=== PATIENT | male | born 1985 | race Hispanic/Latino ===

== ENCOUNTER 2021-02-21 19:57 | Emergency (ER) | payer SELFPAY ==
--- OUTSIDE RECORDS SUMMARY | 2021-02-21 19:59 | XMS REPORT | Continuity of Care Document ---
:1985 Author Organization [facility] t Address [address] [place] [address] Care Team Providers Name Role Phone Ugo Adair DO Attending Clinician Problems This patient has no known problems. Allergies, Adverse Reactions, Alerts This patient has no known allergies or adverse reactions. Medications This patient has no known medications. Procedures This patient has no known procedures. Encounters Start End Encounter Admission Attending Care Care Encounter Source Date/Time Date/Time Type Type Clinicians Facility Department ID 2020-12-11 2020-12-11 Emergency NAKITA Adair [id number] 03:27:00 04:32:00 Brianna Ordonez [id number] [place] [id number] [place] [id number] Results This patient has no known results.
[2021-02-21] MEDS ORDERED: NA CHLORIDE 0.9% 2,000 ML ONE (20:39)
[2021-02-21] MEDS ORDERED: METOPROLOL TARTRATE 5 MG/5 ML INJ IV ONE ×2 (20:39→20:48)
[2021-02-21 20:42] LABS: Protime INR 1.06
[2021-02-21 20:43] LABS: Absolute Lymphocytes (CBC) 5.7 K/uL (0.7-4.9); Basophils % 0.6 % (0-1.3); Hematocrit 45.5 % (39.6-49.0); Lymphocytes % 35.6 % (15.3-44.8); MPV 8.1 fL (7.6-11.3); RBC Red Blood Cell Count 5.22 M/uL (4.33-5.43)
[2021-02-21 20:59] LABS: ALT/SGPT 22 U/L (12-78); AST/SGOT 17 U/L (15-37); Albumin 4.4 g/dL (3.4-5.0); Alkaline Phosphatase 76 U/L (45-117); BUN Blood Urea Nitrogen 11 mg/dL (7-18); Bicarbonate 22 mmol/L (21-32); Bilirubin Direct 0.1 mg/dL (0-0.2); Bilirubin Total 0.4 mg/dL (0.2-1.0); Glucose Level 132 mg/dL (74-106); Magnesium 2.2 mg/dL (1.8-2.4); Potassium 3.1 mmol/L (3.5-5.1); Protein, Total 8.4 g/dL (6.4-8.2); Sodium Level 136 mmol/L (136-145); Troponin (Emerg Dept Use Only) < 0.02 ng/mL (0.0-0.045)
[2021-02-21 21:05] LABS: NT PRO-BNP < 5 pg/mL (<125)
--- NOTE | 2021-02-21 21:13 | RAD REPORT ---
EXAM DESCRIPTION: RAD - Chest Single View - 02/21/2021 9:00 pm CLINICAL HISTORY: High HR Chest pain. COMPARISON: No comparisons FINDINGS: Portable technique limits examination quality. The lungs are grossly clear. The heart is normal in size. No displaced fractures. IMPRESSION: No acute intrathoracic process suspected.
[2021-02-21 21:20] LABS: Urine Blood 2+ (Negative); Urine Glucose Negative (Negative); Urine Protein Negative (Negative); Urine pH 6.5 (5.0-7.0)
[2021-02-21] MEDS ORDERED: POTASSIUM 25 MEQ EFFERV TAB ONE (21:54)
[2021-02-21 21:56] LABS: Barbiturates NEGATIVE (NEGATIVE); Benzodiazepines NEGATIVE (NEGATIVE); Cocaine NEGATIVE (NEGATIVE); METHAMPHETAM NEGATIVE (NEGATIVE); Methadone NEGATIVE (NEGATIVE); Opiates NEGATIVE (NEGATIVE); Phencyclidine NEGATIVE (NEGATIVE); THC Cannibis POSITIVE (NEGATIVE)
[2021-02-21] MEDS ORDERED: METOPROLOL XL 50 MG TAB PO ONE (22:55)
[2021-02-21 23:08] LABS: Blood Morphology Comment NOT SEEN (NOT SEEN); Platelet Estimate ADEQ
--- NOTE | 2021-02-21 23:23 | EDPHYS ---
Physician Documentation [facility] Name: Pato Gardiner Age: 35 yrs Sex: Male : 1985 Arrival Date: 02/21/2021 Time: 20:00 Bed 18 Private MD: ED Physician Carlos Alberto Lewis HPI: 02/21 21:06 This 35 yrs old Male presents to ER via Ambulatory with complaints of Anxiety, pm1 Irregular Pulse. 21:06 The patient presents with a history of heart racing. Context: The symptoms occur at pm1 rest, with anxiety. Onset: The symptoms/episode began/occurred today. Duration: The patient or guardian reports a single episode, that is still ongoing. Modifying factors: The symptoms are aggravated by stress, The symptoms are alleviated by nothing. Associated signs and symptoms: Pertinent positives: anxiety, Dizziness, Pertinent negatives: SOB. Severity of symptoms: in the emergency department the symptoms are unchanged. The patient has not recently seen a physician. Historical: - Allergies: 20:11 No Known Allergies; ca1 - Home Meds: 20:11 Lisinopril Oral [Active]; ca1 - PMHx: 20:11 Hypertension; ca1 - PSHx: 20:11 throat surgery; Appendectomy; ca1 - Immunization history:: Adult Immunizations not up to date. - Social history:: Smoking status: Patient denies any tobacco usage or history of. Patient/guardian denies using street drugs, but used to use street drugs. ROS: 21:06 Constitutional: Negative for fever, chills, and weight loss. pm1 21:06 Respiratory: Negative for shortness of breath, cough, wheezing, and pleuritic chest pain, Abdomen/GI: Negative for abdominal pain, nausea, vomiting, diarrhea, and constipation, Back: Negative for injury and pain, MS/Extremity: Negative for injury and deformity, Skin: Negative for injury, rash, and discoloration. 21:06 Cardiovascular: Positive for palpitations, Negative for chest pain, edema. 21:06 Neuro: Positive for dizziness, Negative for weakness. Exam: 21:06 Constitutional: This is a well developed, well nourished patient who is awake, alert, pm1 and in no acute distress. Head/Face: Normocephalic, atraumatic. 21:06 Abdomen/GI: Soft, non-tender, with normal bowel sounds. No distension or tympany. No guarding or rebound. No evidence of tenderness throughout. Back: No spinal tenderness. No costovertebral tenderness. Full range of motion. Skin: Warm, dry with normal turgor. Normal color with no rashes, no lesions, and no evidence of cellulitis. MS/ Extremity: Pulses equal, no cyanosis. Neurovascular intact. Full, normal range of motion. 21:06 Cardiovascular: Rate: tachycardic, actual rate is 147 bpm, Rhythm: regular, Pulses: no pulse deficits are appreciated, Heart sounds: normal, normal S1and S2, Edema: is not appreciated. 21:06 Respiratory: Exam negative for acute changes, respiratory distress, shortness of breath. 21:06 Neuro: Exam negative for acute changes, Orientation: is normal, Mentation: is normal, Motor: is normal, moves all fours. 21:06 Psych: Behavior/mood is anxious, Affect is animated, Oriented to person, place, time. Vital Signs: 20:07 BP 142 / 98; Pulse 156; Resp 20; Temp 97.5(TE); Pulse Ox 100% on R/A; Weight 101.15 kg ca1 (R); Height 5 ft. 11 in. (180.34 cm) (R); Pain 0/10; 21:08 BP 130 / 75; Pulse 116; Resp 18; Pulse Ox 100% on 2 lpm NC; wh 22:40 BP 126 / 81; Pulse 101; Resp 18; Pulse Ox 100% on R/A; wh 23:57 BP 118 / 70; Pulse 77; Resp 18; Pulse Ox 98% on R/A; wh 20:07 Body Mass Index 31.10 (101.15 kg, 180.34 cm) ca1 MDM: 20:20 Patient medically screened. pm1 23:21 Data reviewed: vital signs. Data interpreted: Pulse oximetry: on room air is 100 %. pm1 Interpretation: normal. 23:21 Counseling: I had a detailed discussion with the patient and/or guardian regarding: the pm1 historical points, exam findings, and any diagnostic results supporting the discharge/admit diagnosis, lab results, radiology results, the need for outpatient follow up, a display manager, a family practitioner, to return to the emergency department if symptoms worsen or persist or if there are any questions or concerns that arise at home. 23:46 ED course: Patient reports that he had low dose propranolol 20 mg in the past and would pm1 like a prescription. Patient under multiple stressors recently, car issues, losing his job after 10 years. 02/21 20:17 Order name: Basic Metabolic Panel 02/21 20:17 Order name: CBC with Diff 02/21 20:17 Order name: LFT's 02/21 20:17 Order name: Magnesium 02/21 20:17 Order name: NT PRO-BNP; Complete Time: 21:28 02/21 20:17 Order name: PT-INR; Complete Time: 21:28 02/21 20:17 Order name: Troponin (emerg Dept Use Only); Complete Time: 21:28 02/21 20:17 Order name: Urine Drug Screen; Complete Time: 23:46 02/21 20:17 Order name: Basic Metabolic Panel; Complete Time: 21:28 [facility] 02/21 20:17 Order name: CBC with Automated Diff; Complete Time: 23:46 [facility] 02/21 20:17 Order name: Liver (Hepatic) Function; Complete Time: 21:28 [facility] 02/21 20:18 Order name: Magnesium; Complete Time: 21:28 [facility] 02/21 20:36 Order name: Thyroid Stimulating Hormone; Complete Time: 21:28 [facility] 02/21 20:17 Order name: XRAY Chest (1 view); Complete Time: :28 02/21 20:17 Order name: EKG; Complete Time: 20:18 02/21 20:17 Order name: Cardiac monitoring; Complete Time: 20: 02/21 20:17 Order name: EKG - Nurse/Tech; Complete Time: 20: 02/21 20:17 Order name: IV Saline Lock; Complete Time: 20: 02/21 20:17 Order name: Labs collected and sent; Complete Time: : 02/21 20:17 Order name: O2 Per Protocol; Complete Time: : 02/21 20:17 Order name: O2 Sat Monitoring; Complete Time: : 02/21 21:12 Order name: Manual Differential; Complete Time: 23:46 [facility] 02/21 21:19 Order name: Urine Dipstick-Ancillary; Complete Time: 21:28 [facility] 02/21 22:46 Order name: EKG; Complete Time: 22:47 pm1 02/21 20:21 Order name: Urine Dipstick-Ancillary (obtain specimen); Complete Time: 21:20 pm1 02/21 22:46 Order name: EKG - Nurse/Tech; Complete Time: 22:57 pm1 Administered Medications: 08:30 Drug: Lopressor (metoprolol) 5 mg Route: IVP; Site: left antecubital; kg 21:36 Follow up: Response: No adverse reaction; Marked relief of symptoms 20:25 Drug: NS 0.9% 1000 ml Route: IV; Rate: 1000 ml; Site: left antecubital; wh 21:37 Follow up: Response: No adverse reaction; IV Status: Completed infusion 20:25 Drug: NS 0.9% 1000 ml Route: IV; Rate: 1000 ml; Site: left antecubital; wh 21:36 Follow up: Response: No adverse reaction; IV Status: Completed infusion 21:36 Drug: Potassium Effervescent Tablet 50 mEq Route: PO; 22:37 Follow up: Response: No adverse reaction 22:37 Drug: Metoprolol TARTRATE 50 mg Route: PO; 23:58 Follow up: Response: No adverse reaction; Marked relief of symptoms Disposition: 02/22 00:13 Co-signature as Attending Physician, Carlos Alberto Lewis MD. [place] Disposition: 02/21/21 23:22 Discharged to Home. Impression: Tachycardia, unspecified, Anxiety disorder, unspecified. - Condition is Stable. - Discharge Instructions: Generalized Anxiety Disorder, Sinus Tachycardia. - Prescriptions for Propranolol 20 mg Oral Tablet - take 1 tablet by ORAL route once daily As needed; 10 tablet. - Medication Reconciliation Form, Thank You Letter, Antibiotic Education, Prescription Opioid Use form. - Follow up: Emergency Department; When: As needed; Reason: Worsening of condition. Follow up: Private Physician; When: 2 - 3 days; Reason: Recheck today's complaints, Continuance of care, Re-evaluation by your physician. - Problem is new. - Symptoms have improved. Signatures: Dispatcher [employer] EDCarlos Alberto Pavon MD MD pkl Marinas, Patrick, DOBBY LOOM WEAVER DOBBY LOOM WEAVER pm1 Argenis Sheikh RN RN Karma Padilla RN RN [facility] Zakia Booker Corrections: (The following items were deleted from the chart) 05/17 20:36 20:21 THYROID STIMULAT HORMONE+C.LAB.BRZ ordered. EDMS EDMS 23:59 23:22 02/21/2021 23:22 Discharged to Home. Impression: Tachycardia, unspecified; wh Anxiety disorder, unspecified. Condition is Stable. Forms are Medication Reconciliation Form, Thank You Letter, Antibiotic Education, Prescription Opioid Use. Follow up: Emergency Department; When: As needed; Reason: Worsening of condition. Follow up: Private Physician; When: 2 - 3 days; Reason: Recheck today's complaints, Continuance of care, Re-evaluation by your physician. Problem is new. Symptoms have improved. pm1
--- NOTE | 2021-02-21 23:23 | ER ---
Nurse's Notes [facility] Name: Pato Gardiner Age: 35 yrs Sex: Male : 1985 Arrival Date: 02/21/2021 Time: 20:00 Bed 18 Private MD: Diagnosis: Tachycardia, unspecified;Anxiety disorder, unspecified Presentation: 02/21 20:07 Chief complaint: Patient states: I quit weed about 13 weeks ago, and I have anxiety all ca1 my life but don't take meds for it. I feel very anxious last few days, BP has been high and I feel like my heart is racing. Coronavirus screen: Client denies travel out of the [place] in the last 14 days. At this time, the client does not indicate any symptoms associated with coronavirus-19. Ebola Screen: Patient negative for fever greater than or equal to 101.5 degrees Fahrenheit, and additional compatible Ebola Virus Disease symptoms Patient denies exposure to infectious person. Patient denies travel to an Ebola-affected area in the 21 days before illness onset. No symptoms or risks identified at this time. Initial Sepsis Screen: Does the patient meet any 2 criteria? No. Patient's initial sepsis screen is negative. Does the patient have a suspected source of infection? No. Patient's initial sepsis screen is negative. Risk Assessment: Do you want to hurt yourself or someone else? Patient reports no desire to harm self or others. Onset of symptoms was February 21, 2021. 20:07 Method Of Arrival: Ambulatory ca1 20:07 Acuity: ANDREW 2 ca1 Historical: - Allergies: 20:11 No Known Allergies; ca1 - Home Meds: 20:11 Lisinopril Oral [Active]; ca1 - PMHx: 20:11 Hypertension; ca1 - PSHx: 20:11 throat surgery; Appendectomy; ca1 - Immunization history:: Adult Immunizations not up to date. - Social history:: Smoking status: Patient denies any tobacco usage or history of. Patient/guardian denies using street drugs, but used to use street drugs. Screenin:30 Abuse screen: Denies threats or abuse. Denies injuries from another. Nutritional wh screening: No deficits noted. Tuberculosis screening: No symptoms or risk factors identified. Fall Risk None identified. Assessment: 20:20 General: Appears in no apparent distress. Behavior is anxious. Pain: Denies pain. Neuro: Level of Consciousness is awake, alert, obeys commands, Oriented to person, place, time, situation. Cardiovascular: Reports palpitations, Heart tones S1 S2. Respiratory: Airway is patent Respiratory effort is even, unlabored, Respiratory pattern is regular, symmetrical, Breath sounds are clear bilaterally. GI: Abdomen is flat, non-distended. : No signs and/or symptoms were reported regarding the genitourinary system. EENT: No signs and/or symptoms were reported regarding the EENT system. Derm: Skin is intact, is healthy with good turgor, Skin is pink, warm \T\ dry. normal. Musculoskeletal: Circulation, motion, and sensation intact. 20:30 Pain: Pain does not radiate. Pain began suddenly. 21:08 Reassessment: Patient appears in no apparent distress at this time. No changes from previously documented assessment. Patient and/or family updated on plan of care and expected duration. Pain level reassessed. Patient is alert, oriented x 3, equal unlabored respirations, skin warm/dry/pink. 22:39 Reassessment: Patient appears in no apparent distress at this time. Patient and/or family updated on plan of care and expected duration. Pain level reassessed. Patient is alert, oriented x 3, equal unlabored respirations, skin warm/dry/pink. 23:57 Reassessment: Patient appears in no apparent distress at this time. Patient and/or family updated on plan of care and expected duration. Pain level reassessed. Patient is alert, oriented x 3, equal unlabored respirations, skin warm/dry/pink. Patient states feeling better. Patient states symptoms have improved. Vital Signs: 20:07 BP 142 / 98; Pulse 156; Resp 20; Temp 97.5(TE); Pulse Ox 100% on R/A; Weight 101.15 kg ca1 (R); Height 5 ft. 11 in. (180.34 cm) (R); Pain 0/10; 21:08 BP 130 / 75; Pulse 116; Resp 18; Pulse Ox 100% on 2 lpm NC; wh 22:40 BP 126 / 81; Pulse 101; Resp 18; Pulse Ox 100% on R/A; wh 23:57 BP 118 / 70; Pulse 77; Resp 18; Pulse Ox 98% on R/A; wh 20:07 Body Mass Index 31.10 (101.15 kg, 180.34 cm) ca1 ED Course: 20:00 Patient arrived in ED. cf2 20:10 Triage completed. ca1 20:11 Arm band placed on right wrist. ca1 20:12 José Araya NP is PHCP. pm1 20:12 Carlos Alberto Lewis MD is Attending Physician. pm1 20:16 Argenis Sheikh RN is Primary Nurse. wh 20:16 Inserted saline lock: 20 gauge in left antecubital area, using aseptic technique. kg 20:30 Patient has correct armband on for positive identification. Bed in low position. Call light in reach. Side rails up X 1. threat monitoring analyst on. Pulse ox on. NIBP on. 20:30 Oxygen administration via nasal cannula \T\ 2L/min. wh 21:01 XRAY Chest (1 view) In Process Unspecified. EDMS 23:58 No provider procedures requiring assistance completed. IV discontinued, intact, wh bleeding controlled, No redness/swelling at site. Administered Medications: 08:30 Drug: Lopressor (metoprolol) 5 mg Route: IVP; Site: left antecubital; kg 21:36 Follow up: Response: No adverse reaction; Marked relief of symptoms wh 20:25 Drug: NS 0.9% 1000 ml Route: IV; Rate: 1000 ml; Site: left antecubital; wh 21:37 Follow up: Response: No adverse reaction; IV Status: Completed infusion wh 20:25 Drug: NS 0.9% 1000 ml Route: IV; Rate: 1000 ml; Site: left antecubital; wh 21:36 Follow up: Response: No adverse reaction; IV Status: Completed infusion wh 21:36 Drug: Potassium Effervescent Tablet 50 mEq Route: PO; wh 22:37 Follow up: Response: No adverse reaction wh 22:37 Drug: Metoprolol TARTRATE 50 mg Route: PO; wh 23:58 Follow up: Response: No adverse reaction; Marked relief of symptoms Outcome: 23:22 Discharge ordered by . pm1 23:58 Discharged to home ambulatory. 23:58 Condition: stable 23:58 Discharge instructions given to patient, Instructed on discharge instructions, follow up and referral plans. medication usage, POC Demonstrated understanding of instructions, follow-up care, medications, POC Prescriptions given X 1. 23:59 Patient left the ED. wh Signatures: Dispatcher [employer] EDMS José Araya, [employer] MANAGER pm1 Argenis Sheikh RN RN Karma Padilla RN RN ca1 Jeremy Cerna cf2 Zakia Booker kg
[2021-02-22 00:28] VITALS: TEMP 97.5
[2021-02-22 00:33] VITALS: BP 118/70; O2SAT 98
--- NOTE | 2021-02-22 11:40 | EKG ---
Test Date: 2021-02-21 Test Time: 22:54:35 Assignment Desk Assistant: MEASUREMENT RESULTS: Intervals: Rate: 85 CT: 166 QRSD: 92 QT: 348 QTc: 414 [place]: P: 60 CT: 166 QRS: 4 T: 39 INTERPRETIVE STATEMENTS: Normal sinus rhythm Normal ECG No previous ECG available for comparison Electronically Signed On 02-22-21 11:39:23 CDT by John Clark
--- NOTE | 2021-02-22 11:40 | EKG ---
Test Date: 2021-02-21 Test Time: 20:14:57 Brand Marketing Specialist: RR MEASUREMENT RESULTS: Intervals: Rate: 159 [place]: 100 QRSD: 86 QT: 310 QTc: 504 [place]: P: 74 KS: 100 QRS: -54 T: 69 INTERPRETIVE STATEMENTS: Sinus tachycardia with short [place] Left anterior fascicular block Abnormal ECG No previous ECG available for comparison Electronically Signed On 02-22-21 11:39:25 CDT by John Clark
== END 2021-02-21 23:59 | disposition home or self-care (01) ==
LOC: ER 19:57
DX: F41.9 Anxiety disorder, unspecified (principal); R00.0 Tachycardia, unspecified; I10 Essential (primary) hypertension
CPT/HCPCS: 36415; 71045; 80048; 80076; 80307; 81003; 83735; 83880; 84443; 84484; 85025; 85610; 93005; 96361; 96374; 99285; J7030

== ENCOUNTER 2021-02-24 17:09 | Emergency (ER) | payer SELFPAY ==
--- OUTSIDE RECORDS SUMMARY | 2021-02-24 17:12 | XMS REPORT | Continuity of Care Document ---
:1985 Author Organization [facility] t Address [address] [id number] Care Team Providers Name Role Phone Ugo [...] 2020-12-11 2020-12-11 Emergency NAKITA Adair [id number] 03:27:00 04:32:00 Brianna Ordonez [id number] [place] [id number] [place] [id number] Results This patient has no known results.
[2021-02-24 20:38] LABS: Absolute Lymphocytes (CBC) 3.5 K/uL (0.7-4.9); Basophils % 0.5 % (0-1.3); Hematocrit 42.9 % (39.6-49.0); Lymphocytes % 28.1 % (15.3-44.8); RBC Red Blood Cell Count 4.95 M/uL (4.33-5.43)
[2021-02-24 20:39] LABS: Protime INR 1.14
[2021-02-24 20:58] LABS: ALT/SGPT 19 U/L (12-78); AST/SGOT 14 U/L (15-37); Albumin 4.3 g/dL (3.4-5.0); Alkaline Phosphatase 63 U/L (45-117); BUN Blood Urea Nitrogen 10 mg/dL (7-18); Bicarbonate 25 mmol/L (21-32); Bilirubin Direct 0.2 mg/dL (0-0.2); Bilirubin Total 0.8 mg/dL (0.2-1.0); Glucose Level 96 mg/dL (74-106); Magnesium 2.4 mg/dL (1.8-2.4); NT PRO-BNP 8 pg/mL (<125); Potassium 3.6 mmol/L (3.5-5.1); Protein, Total 8.2 g/dL (6.4-8.2); Sodium Level 139 mmol/L (136-145); Troponin (Emerg Dept Use Only) < 0.02 ng/mL (0.0-0.045)
--- NOTE | 2021-02-24 20:58 | RAD REPORT ---
EXAM DESCRIPTION: RAD - Chest Single View - 02/24/2021 8:53 pm CLINICAL HISTORY: CHEST PAIN COMPARISON: Portable February 21 TECHNIQUE: AP portable chest image was obtained 02/24/2021 8:53 pm . FINDINGS: Lungs are clear. Heart and vasculature are normal. No measurable pleural effusion and no p neumothorax. No acute bony abnormality seen. No acute aortic findings suspected. IMPRESSION: No acute cardiopulmonary process. No significant change from comparison study.
--- NOTE | 2021-02-24 21:27 | EDPHYS ---
Physician Documentation [facility] Name: Pato Gardiner Age: 35 yrs Sex: Male : 1985 Arrival Date: 02/24/2021 Time: 17:10 Bed 13 Private MD: ED Physician Boubacar Carmona HPI: 02/24 20:38 This 35 yrs old Male presents to ER via Ambulatory with complaints of High daphne Blood Pressure, Anxiety. 20:38 The patient has elevated blood pressure and discovered this at home. Onset: The daphne symptoms/episode began/occurred 2 day(s) ago. Modifying factors: The symptoms are aggravated by activity, The symptoms are alleviated by remaining still. Associated signs and symptoms: The patient has no apparent associated signs or symptoms. Severity of symptoms: At its worst the blood pressure was mild, in the emergency department the blood pressure is unchanged. The patient has not experienced similar symptoms in the past. Historical: - Allergies: 17:19 No Known Allergies; aa5 - PMHx: 17:19 Hypertension; aa5 - PSHx: 17:19 throat surgery; Appendectomy; aa5 - Immunization history:: Flu vaccine is not up to date. - Social history:: Smoking status: Patient denies any tobacco usage or history of. ROS: 20:39 Constitutional: Negative for fever, chills, and weight loss, Eyes: Negative for injury, daphne pain, redness, and discharge, ENT: Negative for injury, pain, and discharge, Neck: Negative for injury, pain, and swelling, Cardiovascular: Negative for chest pain, palpitations, and edema, Respiratory: Negative for shortness of breath, cough, wheezing, and pleuritic chest pain, Abdomen/GI: Negative for abdominal pain, nausea, vomiting, diarrhea, and constipation, Back: Negative for injury and pain, : Negative for injury, bleeding, discharge, and swelling, MS/Extremity: Negative for injury and deformity, Skin: Negative for injury, rash, and discoloration, Neuro: Negative for headache, weakness, numbness, tingling, and seizure, Psych: Negative for depression, anxiety, suicide ideation, homicidal ideation, and hallucinations, Allergy/Immunology: Negative for hives, rash, and allergies, Endocrine: Negative for neck swelling, polydipsia, polyuria, polyphagia, and marked weight changes, Hematologic/Lymphatic: Negative for swollen nodes, abnormal bleeding, and unusual bruising. Exam: 20:39 Constitutional: This is a well developed, well nourished patient who is awake, alert, daphne and in no acute distress. Head/Face: Normocephalic, atraumatic. Eyes: Pupils equal round and reactive to light, extra-ocular motions intact. Lids and lashes normal. Conjunctiva and sclera are non-icteric and not injected. Cornea within normal limits. Periorbital areas with no swelling, redness, or edema. ENT: Nares patent. No nasal discharge, no septal abnormalities noted. Tympanic membranes are normal and external auditory canals are clear. Oropharynx with no redness, swelling, or masses, exudates, or evidence of obstruction, uvula midline. Mucous membranes moist. Neck: Trachea midline, no thyromegaly or masses palpated, and no cervical lymphadenopathy. Supple, full range of motion without nuchal rigidity, or vertebral point tenderness. No Meningismus. Chest/axilla: Normal chest wall appearance and motion. Nontender with no deformity. No lesions are appreciated. Cardiovascular: Regular rate and rhythm with a normal S1 and S2. No gallops, murmurs, or rubs. Normal PMI, no JVD. No pulse deficits. Respiratory: Lungs have equal breath sounds bilaterally, clear to auscultation and percussion. No rales, rhonchi or wheezes noted. No increased work of breathing, no retractions or nasal flaring. Abdomen/GI: Soft, non-tender, with normal bowel sounds. No distension or tympany. No guarding or rebound. No evidence of tenderness throughout. Back: No spinal tenderness. No costovertebral tenderness. Full range of motion. Male : Normal genitalia with no discharge or lesions. Skin: Warm, dry with normal turgor. Normal color with no rashes, no lesions, and no evidence of cellulitis. MS/ Extremity: Pulses equal, no cyanosis. Neurovascular intact. Full, normal range of motion. Neuro: Awake and alert, GCS 15, oriented to person, place, time, and situation. Cranial nerves II-XII grossly intact. Motor strength 5/5 in all extremities. Sensory grossly intact. Cerebellar exam normal. Normal gait. Psych: Awake, alert, with orientation to person, place and time. Behavior, mood, and affect are within normal limits. 20:48 ECG was reviewed by the Attending Physician. [facility] Vital Signs: 17:15 BP 134 / 101; Pulse 93; Resp 17; Temp 98.5; Pulse Ox 100% ; Weight 101.6 kg; Height 5 aa5 ft. 11 in. (180.34 cm); Pain 0/10; 20:19 BP 123 / 86; Pulse 78; Resp 18; Pulse Ox 97% ; ea 21:25 BP 118 / 78; Pulse 77; Resp 18; Pulse Ox 98% on R/A; ea 17:15 Body Mass Index 31.24 (101.60 kg, 180.34 cm) aa5 MDM: 20:07 Patient medically screened. [facility] 20:40 Differential diagnosis: arrythmia, hypertensive crisis, Malignant HTN. Data reviewed: [facility] vital signs, nurses notes, lab test result(s), EKG, radiologic studies, plain films. Data interpreted: bus monitor: rate is 78 beats/min, rhythm is regular, Pulse oximetry: on room air is 78 %. Test interpretation: by ED physician or midlevel provider: ECG, plain radiologic studies. Counseling: I had a detailed discussion with the patient and/or guardian regarding: the historical points, exam findings, and any diagnostic results supporting the discharge/admit diagnosis, lab results, radiology results, the need for outpatient follow up, for definitive care, a tree climber. 02/24 19:58 Order name: Basic Metabolic Panel; Complete Time: : 02/24 19:58 Order name: CBC with Diff; Complete Time: : 02/24 19:58 Order name: LFT's; Complete Time: : 02/24 19:58 Order name: Magnesium; Complete Time: : 02/24 19:58 Order name: NT PRO-BNP; Complete Time: : 02/24 19:58 Order name: PT-INR; Complete Time: : 02/24 19:58 Order name: Troponin (emerg Dept Use Only); Complete Time: : 02/24 19:58 Order name: XRAY Chest (1 view); Complete Time: 21: 02/24 19:58 Order name: EKG; Complete Time: 19:59 02/24 19:58 Order name: Cardiac monitoring; Complete Time: 19:59 02/24 19:58 Order name: EKG - Nurse/Tech; Complete Time: 19:59 ea 02/24 19:58 Order name: IV Saline Lock; Complete Time: 20:19 ea 02/24 20:38 Order name: TSH daphne 02/24 19:58 Order name: Labs collected and sent; Complete Time: 20: ea 02/24 19:58 Order name: O2 Per Protocol; Complete Time: 20:00 02/24 19:58 Order name: O2 Sat Monitoring; Complete Time: 20:00 EC:48 Rate is 74 beats/min. Rhythm is regular. QRS [place] is Normal. DE interval is normal. QRS daphne interval is normal. QT interval is normal. No Q waves. T waves are Normal. No ST changes noted. Clinical impression: NSR w/ Non-specific ST/T Changes and No evidence of ischemia. Interpreted by me. Reviewed by me. Administered Medications: No medications were administered Disposition: 02/24/21 21:26 Discharged to Home. Impression: Palpitations, Essential (primary) hypertension. - Condition is Stable. - Discharge Instructions: Hypertension, Palpitations, Hypertension, Phyl-dl-Gtkl, How to Take Your Blood Pressure, Ibkv-so-Olcj, Aspirin and Your Heart, Palpitations, Eayy-zh-Aoma, Managing Your Hypertension. - Prescriptions for Toprol XL 25 mg Oral Tablet - take 1 tablet by ORAL route once daily; 20 tablet. - Medication Reconciliation Form, Thank You Letter, Antibiotic Education, Prescription Opioid Use form. - Follow up: Private Physician; When: As needed; Reason: Recheck today's complaints, Continuance of care, Re-evaluation by your physician. Follow up: John Clark; When: 2 - 3 days; Reason: Recheck today's complaints, Continuance of care, Re-evaluation by your physician. - Problem is new. - Symptoms have improved. Signatures: Dispatcher [employer] EDMS Boubacar Carmona MD MD cha Calderon, Audri, RN RN cris5 Suzanne Castaneda RN RN eh Corrections: (The following items were deleted from the chart) 21:38 21:26 02/24/2021 21:26 Discharged to Home. Impression: Palpitations; Essential ea (primary) hypertension. Condition is Stable. Discharge Instructions: Hypertension, Palpitations, Hypertension, Xjbu-ys-Yqpi, How to Take Your Blood Pressure, Offh-ed-Wfpz, Aspirin and Your Heart, Palpitations, Rpov-zv-Yjgd, Managing Your Hypertension. Prescriptions for Toprol XL 25 mg Oral Tablet - take 1 tablet by ORAL route once daily; 20 tablet. and Forms are Medication Reconciliation Form, Thank You Letter, Antibiotic Education, Prescription Opioid Use. Follow up: Private Physician; When: As needed; Reason: Recheck today's complaints, Continuance of care, Re-evaluation by your physician. Follow up: John Clark; When: 2 - 3 days; Reason: Recheck today's complaints, Continuance of care, Re-evaluation by your physician. Problem is new. Symptoms have improved. daphne
--- NOTE | 2021-02-24 21:27 | ER ---
Nurse's Notes [facility] Name: Pato Gardiner Age: 35 yrs Sex: Male : 1985 Arrival Date: 02/24/2021 Time: 17:10 Bed 13 Private MD: Diagnosis: Palpitations;Essential (primary) hypertension Presentation: 02/24 17:15 Chief complaint: Patient states: Anxiety and HTN continues since his visit here 3 days aa5 ago. Taking propanolol, lisinopril as prescribed, not helping. States some days he feels fine, but felt bad again today. Coronavirus screen: Client denies travel out of the [place] in the last 14 days. At this time, the client does not indicate any symptoms associated with coronavirus-19. Ebola Screen: Patient denies travel to an Ebola-affected area in the 21 days before illness onset. Initial Sepsis Screen: Does the patient meet any 2 criteria? HR > 90 bpm. No. Patient's initial sepsis screen is negative. Does the patient have a suspected source of infection? No. Patient's initial sepsis screen is negative. Risk Assessment: Do you want to hurt yourself or someone else? Patient reports no desire to harm self or others. Onset of symptoms was February 24, 2021. 17:15 Method Of Arrival: Ambulatory aa5 17:15 Acuity: ANDREW 3 aa5 Historical: - Allergies: 17:19 No Known Allergies; aa5 - PMHx: 17:19 Hypertension; aa5 - PSHx: 17:19 throat surgery; Appendectomy; aa5 - Immunization history:: Flu vaccine is not up to date. - Social history:: Smoking status: Patient denies any tobacco usage or history of. Screenin:37 Abuse screen: Denies threats or abuse. Nutritional screening: No deficits noted. ea Tuberculosis screening: No symptoms or risk factors identified. Fall Risk None identified. Assessment: 20:18 General: Appears uncomfortable, Behavior is appropriate for age. Pain: Complains of ea pain in chest. Neuro: Level of Consciousness is awake, alert, obeys commands, Oriented to person, place, time. Cardiovascular: Patient's skin is warm and dry. Respiratory: Airway is patent Respiratory effort is even, unlabored, Respiratory pattern is regular, symmetrical. Derm: Skin is pink, warm \T\ dry. 21:25 Reassessment: Patient and/or family updated on plan of care and expected duration. Pain ea level reassessed. Patient is alert, oriented x 3, equal unlabored respirations, skin warm/dry/pink. 21:35 Reassessment: Patient and/or family updated on plan of care and expected duration. Pain ea level reassessed. Patient is alert, oriented x 3, equal unlabored respirations, skin warm/dry/pink. Discharge instruction given to patient verbalized the understanding of instruction. Pt left ED ambulatory tolerating well. Patient denies pain at this time. Patient states feeling better. Vital Signs: 17:15 BP 134 / 101; Pulse 93; Resp 17; Temp 98.5; Pulse Ox 100% ; Weight 101.6 kg; Height 5 aa5 ft. 11 in. (180.34 cm); Pain 0/10; 20:19 BP 123 / 86; Pulse 78; Resp 18; Pulse Ox 97% ; ea 21:25 BP 118 / 78; Pulse 77; Resp 18; Pulse Ox 98% on R/A; ea 17:15 Body Mass Index 31.24 (101.60 kg, 180.34 cm) aa5 ED Course: 17:10 Patient arrived in ED. bp1 17:18 Triage completed. aa5 17:19 Arm band placed on. aa5 19:37 Suzanne Castaneda, JAIDEN is Primary Nurse. ea 19:38 Patient has correct armband on for positive identification. Bed in low position. Call ea light in reach. Side rails up X2. 20:07 Boubacar Carmona MD is Attending Physician. daphne 20:18 Inserted saline lock: 20 gauge in left antecubital area, using aseptic technique. Blood ea collected. 20:53 XRAY Chest (1 view) In Process Unspecified. EDMS 21:26 John Clark MD is Referral Physician. daphne 21:35 No provider procedures requiring assistance completed. IV discontinued, intact, ea bleeding controlled, No redness/swelling at site. Pressure dressing applied. Administered Medications: No medications were administered Outcome: 21:26 Discharge ordered by . daphne 21:35 Discharged to home ambulatory. ea 21:35 Condition: stable 21:35 Discharge instructions given to patient, Instructed on discharge instructions, follow up and referral plans. medication usage, Demonstrated understanding of instructions, follow-up care, medications, Prescriptions given X 1. 21:38 Patient left the ED. ea Signatures: Dispatcher [employer] EDBoubacar Denton MD MD cha Calderon, Audri, RN RN Suzanne Arredondo RN RN Shawna Hein
[2021-02-24 22:00] VITALS: TEMP 98.5
[2021-02-24 22:08] VITALS: BP 118/78; O2SAT 98
== END 2021-02-24 21:38 | disposition home or self-care (01) ==
LOC: ER 17:09
DX: I10 Essential (primary) hypertension (principal)
CPT/HCPCS: 36415; 71045; 80048; 80076; 83735; 83880; 84484; 85025; 85610; 93005; 99284

== ENCOUNTER 2021-02-25 10:56 | Emergency (ER) | payer SELFPAY ==
--- OUTSIDE RECORDS SUMMARY | 2021-02-25 11:00 | XMS REPORT | Continuity of Care Document ---
:1985 Author Organization [facility] t Address [address] [place] [address] Care Team Providers Name Role Phone Ugo [...] Clinicians Facility Department ID 2020-12-11 2020-12-11 Emergency [facility] [id number] 03:27:00 04:32:00 Brianna Ordonez [id number] [place] [id number] [place] [phone] Results This patient has no known results.
[2021-02-25] MEDS ORDERED: LORAZEPAM 1 MG TABLET ONE (12:47)
--- NOTE | 2021-02-25 14:37 | EDPHYS ---
Physician Documentation [facility] Name: Pato Gardiner Age: 35 yrs Sex: Male : 1985 Arrival Date: 02/25/2021 Time: 11:00 Bed 17 Private MD: ED Physician Ivan Childs HPI: 02/25 17:47 This 35 yrs old Male presents to ER via Ambulatory with complaints of Anxiety, kdr High Blood Pressure. 17:47 This 35 yrs old Male presents to ER via Ambulatory with complaints of Anxiety, kdr High Blood Pressure. 17:47 The patient presents to the emergency department with anxiety, over unknown kdr circumstances. Onset: The symptoms/episode began/occurred gradually, 2 week(s) ago. Associated signs and symptoms: Pertinent positives; anxiety, HTN. Severity of symptoms: At their worst the symptoms were moderate severe incapacitating just prior to arrival, today, in the emergency department the symptoms have improved mildly. The patient has experienced similar episodes in the past, a few times, but today's symptoms are worse, lasting longer. The patient has been recently seen by a physician: The patient has been recently seen at the [facility] Emergency Department, this week. The patient keeps having increased anxiety and then he takes his BP and notes that it is elevated. Then he gets more anxious. This has been ongoing for a few days and he has been seen in this ED twice for the same problem.. Historical: - Allergies: 11:16 No Known Allergies; hb - Home Meds: 11:16 Propranolol Oral [Active]; hb - PMHx: 11:16 Hypertension; hb - PSHx: 11:16 throat surgery; Appendectomy; hb - Immunization history:: Adult Immunizations up to date. - Social history:: Smoking status: Patient denies any tobacco usage or history of. ROS: 17:47 Constitutional: Negative for fever, chills, and weight loss, Eyes: Negative for injury, kdr pain, redness, and discharge, ENT: Negative for injury, pain, and discharge, Neck: Negative for injury, pain, and swelling, Respiratory: Negative for shortness of breath, cough, wheezing, and pleuritic chest pain, Abdomen/GI: Negative for abdominal pain, nausea, vomiting, diarrhea, and constipation, Back: Negative for injury and pain, : Negative for injury, bleeding, discharge, and swelling, MS/Extremity: Negative for injury and deformity, Skin: Negative for injury, rash, and discoloration, Neuro: Negative for headache, weakness, numbness, tingling, and seizure activity. Allergy/Immunology: Negative for hives, rash, and allergies, Endocrine: Negative for neck swelling, polydipsia, polyuria, polyphagia, and marked weight changes, Hematologic/Lymphatic: Negative for swollen nodes, abnormal bleeding, and unusual bruising. 17:47 Cardiovascular: Positive for palpitations, HTN. 17:47 Psych: Positive for anxiety, Negative for depression, drug dependence, alcohol dependence, auditory hallucinations, visual hallucinations, homicidal ideation, insomnia, suicide gesture, suicidal ideation. Exam: 17:47 Constitutional: This is a well developed, well nourished patient who is awake, alert, kdr and in mild distress. Pressured speech Head/Face: Normocephalic, atraumatic. Eyes: Pupils equal round and reactive to light, extra-ocular motions intact. Lids and lashes normal. Conjunctiva and sclera are non-icteric and not injected. Cornea within normal limits. Periorbital areas with no swelling, redness, or edema. Neck: Trachea midline, no thyromegaly or masses palpated, and no cervical lymphadenopathy. Supple, full range of motion without nuchal rigidity, or vertebral point tenderness. No Meningismus. Chest/axilla: Normal chest wall appearance and motion. Nontender with no deformity. No lesions are appreciated. Cardiovascular: Regular rate and rhythm with a normal S1 and S2. No gallops, murmurs, or rubs. Normal PMI, no JVD. No pulse deficits. Respiratory: Lungs have equal breath sounds bilaterally, clear to auscultation and percussion. No rales, rhonchi or wheezes noted. No increased work of breathing, no retractions or nasal flaring. Abdomen/GI: Soft, non-tender, with normal bowel sounds. No distension or tympany. No guarding or rebound. No evidence of tenderness throughout. Back: No spinal tenderness. No costovertebral tenderness. Full range of motion. Skin: Warm, dry with normal turgor. Normal color with no rashes, no lesions, and no evidence of cellulitis. MS/ Extremity: Pulses equal, no cyanosis. Neurovascular intact. Full, normal range of motion. Neuro: Awake and alert, GCS 15, oriented to person, place, time, and situation. Cranial nerves II-XII grossly intact. Motor strength 5/5 in all extremities. Sensory grossly intact. Cerebellar exam normal. Normal gait. 17:47 Psych: Affect is animated, Oriented to person, place, time, Patient has no thoughts/intents to harm self or others. Judgement / Insight is normal. Delusions/hallucinations are not present. Vital Signs: 11:13 BP 138 / 89; Pulse 132; Resp 20; Temp 98.3; Pulse Ox 100% on R/A; Pain 0/10; hb 12:31 BP 117 / 83; Pulse 76; Resp 16 S; Pulse Ox 99% on R/A; ca1 13:43 BP 113 / 77 LA (auto/reg); Pulse 73; Resp 18; Pulse Ox 100% on R/A; Pain 0/10; jp3 14:45 BP 114 / 79; Pulse 75; Resp 16 S; Pulse Ox 100% on R/A; ca1 MDM: 14:36 Patient medically screened. kdr 17:47 Data reviewed: vital signs, nurses notes. Counseling: I had a detailed discussion with kdr the patient and/or guardian regarding: the historical points, exam findings, and any diagnostic results supporting the discharge/admit diagnosis, the need for outpatient follow up. Administered Medications: 12:30 Drug: Ativan (LORazepam) 1 mg Route: PO; ca1 13:47 Follow up: Response: No adverse reaction; Anxiety decreased ca1 Disposition: 02/25/21 14:36 Discharged to Home. Impression: Anxiety disorder, unspecified. - Condition is Stable. - Discharge Instructions: Panic Attacks, Xvps-fm-Gewp, Generalized Anxiety Disorder. - Prescriptions for Ativan 1 mg Oral Tablet - take 1 tablet by ORAL route every 8 hours As needed; 10 tablet. - Medication Reconciliation Form, Thank You Letter form. - Follow up: Private Physician; When: 2 - 3 days; Reason: If symptoms return, Further diagnostic work-up, Recheck today's complaints, Continuance of care, Re-evaluation by your physician. - Problem is new. - Symptoms have improved. Signatures: Ivan Childs MD MD [facility] Cande Chavez RN RN Acob, JAIDEN Parada RN ca1 Corrections: (The following items were deleted from the chart) 14:47 14:36 02/25/2021 14:36 Discharged to Home. Impression: Anxiety disorder, unspecified. ca1 Condition is Stable. Forms are Medication Reconciliation Form, Thank You Letter, Antibiotic Education, Prescription Opioid Use. Follow up: Private Physician; When: 2 - 3 days; Reason: If symptoms return, Further diagnostic work-up, Recheck today's complaints, Continuance of care, Re-evaluation by your physician. Problem is new. Symptoms have improved. kdr
--- NOTE | 2021-02-25 14:37 | ER ---
Nurse's Notes [facility] Name: Pato Gardiner Age: 35 yrs Sex: Male : 1985 Arrival Date: 02/25/2021 Time: 11:00 Bed 17 Private MD: Diagnosis: Anxiety disorder, unspecified Presentation: 02/25 11:13 Chief complaint: Anxiety, SOB, numbness and tingling of face and hands, home BP hb 162/108. Recently seen in ED for same s/s, took propanolol at 0900. Coronavirus screen: At this time, the client does not indicate any symptoms associated with coronavirus-19. Ebola Screen: No symptoms or risks identified at this time. Initial Sepsis Screen: Does the patient meet any 2 criteria? No. Patient's initial sepsis screen is negative. Does the patient have a suspected source of infection? No. Patient's initial sepsis screen is negative. Risk Assessment: Do you want to hurt yourself or someone else? Patient reports no desire to harm self or others. Onset of symptoms was February 25, 2021. 11:13 Method Of Arrival: Ambulatory hb 11:13 Acuity: ANDREW 2 hb Historical: - Allergies: 11:16 No Known Allergies; hb - Home Meds: 11:16 Propranolol Oral [Active]; hb - PMHx: 11:16 Hypertension; hb - PSHx: 11:16 throat surgery; Appendectomy; hb - Immunization history:: Adult Immunizations up to date. - Social history:: Smoking status: Patient denies any tobacco usage or history of. Screenin:31 Abuse screen: Denies threats or abuse. Denies injuries from another. Nutritional ca1 screening: No deficits noted. Tuberculosis screening: No symptoms or risk factors identified. Fall Risk None identified. Assessment: 12:31 General: Appears in no apparent distress. comfortable, Behavior is calm, cooperative, ca1 appropriate for age. Pain: Denies pain. Neuro: Level of Consciousness is awake, alert, obeys commands, Oriented to person, place, time, situation. Cardiovascular: Heart tones S1 S2 present Capillary refill < 3 seconds Patient's skin is warm and dry. Rhythm is sinus rhythm. Respiratory: Airway is patent Respiratory effort is even, unlabored, Respiratory pattern is regular, symmetrical, Breath sounds are clear bilaterally. GI: Abdomen is flat, non-distended, Bowel sounds present X 4 quads. Abd is soft and non tender X 4 quads. : No signs and/or symptoms were reported regarding the genitourinary system. EENT: No signs and/or symptoms were reported regarding the EENT system. Derm: Skin is intact, is healthy with good turgor, Skin is pink, warm \T\ dry. Musculoskeletal: Circulation, motion, and sensation intact. Capillary refill < 3 seconds. 13:47 Reassessment: Patient appears in no apparent distress at this time. Patient and/or ca1 family updated on plan of care and expected duration. Pain level reassessed. Patient is alert, oriented x 3, equal unlabored respirations, skin warm/dry/pink. Patient states feeling better. Patient states symptoms have improved. 14:45 Reassessment: Patient appears in no apparent distress at this time. Patient is alert, ca1 oriented x 3, equal unlabored respirations, skin warm/dry/pink. Patient states feeling better. Vital Signs: 11:13 BP 138 / 89; Pulse 132; Resp 20; Temp 98.3; Pulse Ox 100% on R/A; Pain 0/10; hb 12:31 BP 117 / 83; Pulse 76; Resp 16 S; Pulse Ox 99% on R/A; ca1 13:43 BP 113 / 77 LA (auto/reg); Pulse 73; Resp 18; Pulse Ox 100% on R/A; Pain 0/10; jp3 14:45 BP 114 / 79; Pulse 75; Resp 16 S; Pulse Ox 100% on R/A; ca1 ED Course: 11:00 Patient arrived in ED. mr 11:15 Triage completed. hb 11:16 Arm band placed on. hb 11:53 Ivan Childs MD is Attending Physician. kdr 12:21 Karma Padilla, JAIDEN is Primary Nurse. ca1 12:31 Patient has correct armband on for positive identification. Bed in low position. Call ca1 light in reach. Side rails up X 1. Pulse ox on. NIBP on. Warm blanket given. 13:44 Notified ED physician of Notified primary nurse of vital signs. jp3 13:44 Patient maintains SpO2 saturation greater than 95% on room air. jp3 14:46 No provider procedures requiring assistance completed. Patient did not have IV access ca1 during this emergency room visit. Administered Medications: 12:30 Drug: Ativan (LORazepam) 1 mg Route: PO; ca1 13:47 Follow up: Response: No adverse reaction; Anxiety decreased ca1 Outcome: 14:36 Discharge ordered by . kdr 14:46 Discharged to home ambulatory. ca1 14:46 Condition: stable 14:46 Discharge instructions given to patient, Instructed on discharge instructions, follow up and referral plans. no drinking with medication, no driving heavy equipment, medication usage, Demonstrated understanding of instructions, follow-up care, medications, Prescriptions given X 1. 14:47 Patient left the ED. ca1 Signatures: Ivan Childs MD MD [facility] Ruby Szymanski Heather, RN RN Tone Kaur jp3 Karma Padilla RN RN ca1
[2021-02-25 14:55] VITALS: TEMP 98.3
[2021-02-25 14:59] VITALS: O2SAT 100
[2021-02-25 15:00] VITALS: BP 114/79
== END 2021-02-25 14:47 | disposition home or self-care (01) ==
LOC: ER 10:56
DX: F41.9 Anxiety disorder, unspecified (principal); I10 Essential (primary) hypertension
CPT/HCPCS: 99284

== ENCOUNTER 2021-02-28 20:31 | Emergency (ER) | payer SELFPAY ==
--- OUTSIDE RECORDS SUMMARY | 2021-02-28 20:33 | XMS REPORT | Continuity of Care Document ---
:1985 Author Organization [facility] t Address [address] [place] [address] Care Team Providers Name Role Phone Ugo [...] 2020-12-11 2020-12-11 Emergency NAKITA [place] [id number] 03:27:00 04:32:00 Brianna Ordonez [id number] [place] [id number] [place] [phone] [id number] Results This patient has no known results.
[2021-02-28 22:12] LABS: Absolute Lymphocytes (CBC) 3.2 K/uL (0.7-4.9); Basophils % 0.5 % (0-1.3); Hematocrit 44.5 % (39.6-49.0); Lymphocytes % 25.9 % (15.3-44.8); MPV 7.8 fL (7.6-11.3); RBC Red Blood Cell Count 5.16 M/uL (4.33-5.43)
[2021-02-28 22:13] LABS: Protime INR 1.1
[2021-02-28 22:27] LABS: ALT/SGPT 18 U/L (12-78); AST/SGOT 14 U/L (15-37); Albumin 4.3 g/dL (3.4-5.0); Alkaline Phosphatase 69 U/L (45-117); BUN Blood Urea Nitrogen 12 mg/dL (7-18); Bicarbonate 25 mmol/L (21-32); Bilirubin Direct 0.1 mg/dL (0-0.2); Bilirubin Total 0.6 mg/dL (0.2-1.0); Glucose Level 98 mg/dL (74-106); Magnesium 2.5 mg/dL (1.8-2.4); Potassium 3.9 mmol/L (3.5-5.1); Protein, Total 8.4 g/dL (6.4-8.2); Sodium Level 134 mmol/L (136-145); Troponin (Emerg Dept Use Only) < 0.02 ng/mL (0.0-0.045)
[2021-02-28 22:33] LABS: Barbiturates NEGATIVE (NEGATIVE); Benzodiazepines NEGATIVE (NEGATIVE); Cocaine NEGATIVE (NEGATIVE); METHAMPHETAM NEGATIVE (NEGATIVE); Methadone NEGATIVE (NEGATIVE); Opiates NEGATIVE (NEGATIVE); Phencyclidine NEGATIVE (NEGATIVE); THC Cannibis POSITIVE (NEGATIVE)
--- NOTE | 2021-02-28 22:55 | ER ---
Nurse's Notes [facility] Name: Pato Gardiner Age: 35 yrs Sex: Male : 1985 Arrival Date: 02/28/2021 Time: 20:33 Bed 24 Private MD: Diagnosis: Anxiety disorder, unspecified Presentation: 02/28 20:39 Chief complaint: Patient states: Started getting dizzy around 1500, BP was at 155/113. 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 Coronavirus screen: Client denies travel out of the [place] in the last 14 days. At this time, the client does not indicate any symptoms associated with coronavirus-19. Ebola Screen: Patient negative for fever greater than or equal to 101.5 degrees Fahrenheit, and additional compatible Ebola Virus Disease symptoms Patient denies exposure to infectious person. Patient denies travel to an Ebola-affected area in the 21 days before illness onset. No symptoms or risks identified at this time. Initial Sepsis Screen: Does the patient meet any 2 criteria? No. Patient's initial sepsis screen is negative. Does the patient have a suspected source of infection? No. Patient's initial sepsis screen is negative. Risk Assessment: Do you want to hurt yourself or someone else? Patient reports no desire to harm self or others. Onset of symptoms was February 28, 2021. 20:39 Method Of Arrival: Ambulatory ca1 20:39 Acuity: ANDREW 3 ca1 Triage Assessment: 21:45 General: Appears in no apparent distress. Behavior is anxious. Pain: Complains of pain zb in forehead Pain does not radiate. Pain currently is 0 out of 10 on a pain scale. Quality of pain is described as aching. Neuro: Level of Consciousness is awake, alert, obeys commands, Oriented to person, place, time, situation, Metrology Engineer are equal bilaterally Moves all extremities. Full function Gait is steady, Speech is normal, Pupils are PERRLA, Reports headache frontal area. Cardiovascular: Heart tones S1 S2 present Capillary refill < 3 seconds Patient's skin is warm and dry. Respiratory: Airway is patent Respiratory effort is even, unlabored, Respiratory pattern is regular, symmetrical. Derm: Skin is intact, is healthy with good turgor, Skin is dry, Skin is normal, Skin temperature is warm. Musculoskeletal: Range of motion: intact in all extremities. Historical: - Allergies: 20:42 No Known Allergies; ca1 - Home Meds: 20:42 Propranolol Oral [Active]; ca1 - PMHx: 20:42 Hypertension; Anxiety; ca1 - PSHx: 20:42 throat surgery; Appendectomy; ca1 - Immunization history:: Client reports having NOT received the Covid vaccine. Flu vaccine is up to date. - Social history:: Smoking status: Patient denies any tobacco usage or history of. Screenin:45 Abuse screen: Denies threats or abuse. Denies injuries from another. Nutritional zb screening: No deficits noted. Tuberculosis screening: No symptoms or risk factors identified. Fall Risk None identified. Assessment: :45 Reassessment: SEE triage assessment. zb :45 Reassessment: Patient appears in no apparent distress at this time. Patient and/or zb family updated on plan of care and expected duration. Pain level reassessed. Patient is alert/active/playful, equal unlabored respirations, skin warm/dry/pink. 23:23 Reassessment: Patient appears in no apparent distress at this time. Patient and/or zb family updated on plan of care and expected duration. Pain level reassessed. Patient is alert/active/playful, equal unlabored respirations, skin warm/dry/pink. denies pain at this time gait even and stable upon discharge. Vital Signs: 20:39 BP 126 / 85; Pulse 93; Resp 16 S; Temp 98.1(TE); Pulse Ox 100% on R/A; Weight 99.79 kg ca1 (R); Height 5 ft. 11 in. (180.34 cm) (R); Pain 0/10; 23:24 BP 116 / 81; Pulse 72; Resp 16; Pulse Ox 99% on R/A; zb 20:39 Body Mass Index 30.68 (99.79 kg, 180.34 cm) ca1 ED Course: 20:33 Patient arrived in ED. ag3 20:41 Triage completed. ca1 20:42 Arm band placed on right wrist. ca1 21:32 Boubacra Pulido PA is PHCP. cp 21:32 Zaki Lyon MD is Attending Physician. cp 21:45 Jeri Daniel RN is Primary Nurse. zb 21:45 Patient has correct armband on for positive identification. retirement plan counselor on. Pulse zb ox on. NIBP on. Door closed. Noise minimized. 22:00 Initial lab(s) drawn, by me, sent to lab. Inserted saline lock: 22 gauge in left zb antecubital area, using aseptic technique. Blood collected. 23:24 No provider procedures requiring assistance completed. IV discontinued, intact, zb bleeding controlled, No redness/swelling at site. Pressure dressing applied. Administered Medications: No medications were administered Outcome: 22:55 Discharge ordered by . salome 23:24 Discharged to home ambulatory. zb 23:24 Condition: stable 23:24 Discharge instructions given to patient, Instructed on discharge instructions, follow up and referral plans. medication usage, Demonstrated understanding of instructions, follow-up care, medications, Prescriptions given X 1. 23:25 Patient left the ED. zb Signatures: Boubacar Pulido PA PA cp Gomez, Alice ag3 Karma Padilla, RN RN Jeri Syed RN RN shira
--- NOTE | 2021-02-28 22:55 | EDPHYS ---
Physician Documentation [facility] Name: Pato Gardiner Age: 35 yrs Sex: Male : 1985 Arrival Date: 02/28/2021 Time: 20:33 Bed 24 Private MD: ED Physician Zaki Lyon HPI: 02/28 21:55 This 35 yrs old Male presents to ER via Ambulatory with complaints of High cp Blood Pressure. 21:55 The patient has elevated blood pressure and discovered this at home, with a home device.cp 21:55 Onset: The symptoms/episode began/occurred today. Associated signs and symptoms: cp Pertinent positives: chest pain, dizziness, blurred vision, Pertinent negatives: weakness. Severity of symptoms: At its worst the blood pressure was 155 mm Hg, in the emergency department the blood pressure is improved, moderately. 21:55 The patient has experienced similar episodes in the past, multiple times. 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 Symptoms improving. cp Historical: - Allergies: 20:42 No Known Allergies; ca1 - Home Meds: 20:42 Propranolol Oral [Active]; ca1 - PMHx: 20:42 Hypertension; Anxiety; ca1 - PSHx: 20:42 throat surgery; Appendectomy; ca1 - Immunization history:: Client reports having NOT received the Covid vaccine. Flu vaccine is up to date. - Social history:: Smoking status: Patient denies any tobacco usage or history of. ROS: 22:00 Constitutional: Negative for body aches, chills, fever, poor PO intake. cp 22:00 Eyes: Negative for injury, pain, redness, and discharge. cp 22:00 Cardiovascular: Positive for chest pain. cp 22:00 ENT: Negative for ear pain, sore throat, difficulty swallowing, difficulty handling cp secretions. 22:00 Respiratory: Negative for cough, shortness of breath, wheezing. 22:00 Abdomen/GI: Negative for abdominal pain, nausea, vomiting, and diarrhea. 22:00 Back: Negative for pain at rest, pain with movement. 22:00 Skin: Negative for rash. 22:00 Neuro: Positive for dizziness, Negative for altered mental status, numbness, weakness. 22:00 All other systems are negative. Exam: 22:05 Constitutional: The patient appears in no acute distress, alert, awake, cp non-diaphoretic, non-toxic, well developed, well nourished. 22:05 Head/Face: Normocephalic, atraumatic. cp 22:05 Eyes: Periorbital structures: appear normal, Conjunctiva: normal, no exudate, no injection, Lids and lashes: appear normal, bilaterally. 22:05 ENT: External ear(s): are unremarkable, Nose: is normal, Mouth: Lips: moist, Oral mucosa: moist, Posterior pharynx: is normal, airway is patent. 22:05 Neck: ROM/movement: is normal, is supple, without pain, no range of motions limitations. 22:05 Chest/axilla: Inspection: normal, Palpation: is normal, no crepitus, no tenderness. 22:05 Cardiovascular: Rate: normal, Rhythm: regular, Heart sounds: murmur, not appreciated. 22:05 Respiratory: the patient does not display signs of respiratory distress, Respirations: normal, no use of accessory muscles, no retractions, labored breathing, is not present, Breath sounds: are clear throughout, no decreased breath sounds, no stridor, no wheezing. 22:05 Abdomen/GI: Inspection: abdomen appears normal, Palpation: abdomen is soft and non-tender, in all quadrants. 22:15 ECG was reviewed by the Attending Physician. cp Vital Signs: 20:39 BP 126 / 85; Pulse 93; Resp 16 S; Temp 98.1(TE); Pulse Ox 100% on R/A; Weight 99.79 kg ca1 (R); Height 5 ft. 11 in. (180.34 cm) (R); Pain 0/10; 23:24 BP 116 / 81; Pulse 72; Resp 16; Pulse Ox 99% on R/A; zb 20:39 Body Mass Index 30.68 (99.79 kg, 180.34 cm) ca1 MDM: 21:46 Patient medically screened. cp 22:55 Data reviewed: vital signs, nurses notes, lab test result(s), EKG, and as a result, I cp will discharge patient. 22:55 Counseling: I had a detailed discussion with the patient and/or guardian regarding: the cp historical points, exam findings, and any diagnostic results supporting the discharge/admit diagnosis, lab results, the need for outpatient follow up, a family practitioner, to return to the emergency department if symptoms worsen or persist or if there are any questions or concerns that arise at home. 22:55 Test interpretation: by ED physician or midlevel provider: ECG. ED course: VSS. cp Discussed results of labs, EKG. Patient reports symptoms improved with Ativan. Will discharge to home for continued monitoring and recommend f/u with family physician. 02/28 21:48 Order name: Basic Metabolic Panel; Complete Time: 22:50 cp 02/28 22:50 Interpretation: Normal except: NA 134. cp 02/28 21:48 Order name: CBC with Diff; Complete Time: 22:50 cp 02/28 22:50 Interpretation: Normal except: WBC 12.20; RDW 12.0. cp 02/28 21:48 Order name: LFT's; Complete Time: 22:50 cp 02/28 21:48 Order name: Magnesium; Complete Time: 22:50 cp 02/28 21:48 Order name: PT-INR; Complete Time: 22:50 cp 02/28 21:48 Order name: Troponin (emerg Dept Use Only); Complete Time: 22:50 cp 02/28 22:51 Interpretation: Within normal limits: TROPED < 0.02. cp 02/28 21:48 Order name: EKG; Complete Time: 21:49 cp 02/28 21:48 Order name: Cardiac monitoring; Complete Time: 22:14 cp 02/28 21:48 Order name: EKG - Nurse/Tech; Complete Time: 22:14 cp 02/28 21:48 Order name: IV Saline Lock; Complete Time: 21:54 cp 02/28 21:48 Order name: Labs collected and sent; Complete Time: 21:54 cp 02/28 21:48 Order name: O2 Per Protocol; Complete Time: 21:54 cp 02/28 21:48 Order name: O2 Sat Monitoring; Complete Time: 21:54 cp 02/28 21:48 Order name: UDS; Complete Time: 22:50 cp EC:15 Rate is 73 beats/min. Rhythm is regular. AK interval is normal. QRS interval is normal. cp QT interval is normal. Interpreted by me. Reviewed by me. Administered Medications: No medications were administered Disposition: 03/01 05:05 Co-signature as Attending Physician, Zaki Lyon MD I agree with the assessment and tw4 plan of care. Disposition: 02/28/21 22:55 Discharged to Home. Impression: Anxiety disorder, unspecified. - Condition is Stable. - Discharge Instructions: Panic Attacks, Generalized Anxiety Disorder. - Prescriptions for Toprol XL 25 mg Oral Tablet Sustained Release 24 hr - take 1 tablet by ORAL route once daily; 30 tablet. - Medication Reconciliation Form, Thank You Letter, Antibiotic Education, Prescription Opioid Use form. - Follow up: Private Physician; When: 1 - 2 days; Reason: Recheck today's complaints. - Problem is an ongoing problem. - Symptoms have improved. Signatures: Dispatcher [employer] EDMS Boubacar Pulido PA PA cp Zaki Lyon MD MD tw4 Karma Padilla RN RN ca1 Brown, Zipporah, RN RN zb Corrections: (The following items were deleted from the chart) 02/28 23:25 22:55 02/28/2021 22:55 Discharged to Home. Impression: Anxiety disorder, unspecified. zb Condition is Stable. Forms are Medication Reconciliation Form, Thank You Letter, Antibiotic Education, Prescription Opioid Use. Follow up: Private Physician; When: 1 - 2 days; Reason: Recheck today's complaints. Problem is an ongoing problem. Symptoms have improved. cp 03/01 22:05 02/28 21:55 Severity of symptoms: At its worst the blood pressure was 156 mm Hg, in the emergency department the blood pressure is improved, moderately, cp 03/01 22:06 02/28 21:55 Patient reports taking Ativan 1 hour ago. [facility]
[2021-03-01 01:09] VITALS: TEMP 98.1
[2021-03-01 01:11] VITALS: BP 116/81; O2SAT 99
--- NOTE | 2021-03-01 11:32 | EKG ---
Test Date: 2021-02-28 Test Time: 22:09:31 Finance Analyst: MILNA MEASUREMENT RESULTS: Intervals: Rate: 73 NH: 156 QRSD: 90 QT: 372 QTc: 409 [place]: P: 47 NH: 156 QRS: -11 T: 56 INTERPRETIVE STATEMENTS: Normal sinus rhythm Normal ECG Compared to ECG 02/24/2021 19:54:59 No significant changes Electronically Signed On 03-01-21 11:31:00 CDT by John Clark
== END 2021-02-28 23:25 | disposition home or self-care (01) ==
LOC: ER 20:31
DX: F41.9 Anxiety disorder, unspecified (principal); I10 Essential (primary) hypertension
CPT/HCPCS: 36415; 80048; 80076; 80307; 83735; 84484; 85025; 85610; 93005; 99284

== ENCOUNTER 2022-08-05 14:48 | Emergency (ER) | payer BC, SELFPAY ==
--- OUTSIDE RECORDS SUMMARY | 2022-08-05 14:51 | XMS REPORT | Continuity of Care Document ---
:1985 Author Organization [facility] t Address [address] [place] [address] Care Team Providers Name Role Phone Balaton Jonathon RIOS Primary Care Physician [phone] Brianna Medel DO Attending Clinician BRIANNA MEDEL Attending Clinician Unavailable Problems This patient has no known problems. Allergies, Adverse Reactions, Alerts Allergy Allergy Status Severity Reaction(s) Onset Inactive Treating Comm ents Source Name Type Date Date Clinician NO KNOWN Drug Active Univers ALLERGIE Class ity of S [facility] Social History Social Habit Start Date Stop Date Quantity Comments Source Exposure to SARS-CoV-2 Not sure [facility] Sex [facility] Smoking Status Start Date Stop Date Source Unknown if ever smoked [facility] Medications Ordered Filled Start Stop Current Ordering Indication Dosage Frequency Signature Comments Components Source Medication Medication Date Date Medication? Clinician (SIG) Name Name Dose 2021-0 No Unknown 3-30 00:00: 00 Dose 2021-0 No Unknown 3-30 00:00: 00 Dose 2021-0 No Unknown 3-30 00:00: 00 Dose 2021-0 No Unknown 3-30 00:00: 00 Dose 2021-0 No Unknown 3-30 00:00: 00 Dose 2021-0 No Unknown 3-30 00:00: 00 Dose 2021-0 No Unknown 3-30 00:00: 00 Dose 2-0 No Unknown 3-30 00:00: 00 Dose 2021-0 No Unknown 3-30 00:00: 00 Dose 2021-0 No Unknown 3-30 00:00: 00 Dose 2022-0 No Unknown 3-30 00:00: 00 Dose 2022-0 No Unknown 3-30 00:00: 00 Dose 2022-0 No Unknown 3-30 00:00: 00 Dose 2022-0 No Unknown 3-30 00:00: 00 Dose 2022-0 No Unknown 3-30 00:00: 00 Dose 2022-0 No Unknown 3-30 00:00: 00 Dose 2022-0 No Unknown 3-30 00:00: 00 Dose 2022-0 No Unknown 3-30 00:00: 00 Dose 2022-0 No Unknown 3-30 00:00: 00 Dose 2022-0 No Unknown 3-30 00:00: 00 Dose 2022-0 No Unknown 3-30 00:00: 00 Dose 2022-0 No Unknown 3-30 00:00: 00 Dose 2022-0 No Unknown 3-30 00:00: 00 Dose 2022-0 No Unknown 3-30 00:00: 00 Dose 2022-0 No Unknown 3-30 00:00: 00 Dose 2022-0 No Unknown 3-30 00:00: 00 Dose 2022-0 No Unknown 3-30 00:00: 00 Dose 2022-0 No Unknown 3-30 00:00: 00 Dose 2022-0 No Unknown 3-30 00:00: 00 Dose 2022-0 No Unknown 3-30 00:00: 00 Dose 2022-0 No Unknown 3-30 00:00: 00 Dose 2022-0 No Unknown 3-30 00:00: 00 Dose 2022-0 No Unknown 3-30 00:00: 00 Dose 2022-0 No Unknown 3-30 00:00: 00 Dose 2022-0 No Unknown 3-30 00:00: 00 Dose 2022-0 No Unknown 3-30 00:00: 00 Dose 2022-0 No Unknown 3-30 00:00: 00 Dose 2022-0 No Unknown 3-30 00:00: 00 Dose 2022-0 No Unknown 3-30 00:00: 00 Dose 2022-0 No Unknown 3-30 00:00: 00 Dose 2022-0 No Unknown 3-30 00:00: 00 Dose 2022-0 No Unknown 3-30 00:00: 00 Dose 2022-0 No Unknown 3-30 00:00: 00 Dose 2022-0 No Unknown 3-30 00:00: 00 Dose 2021-0 No Unknown 3-30 00:00: 00 Dose 2021-0 No Unknown 3-30 00:00: 00 Dose 2021-0 No Unknown 3-30 00:00: 00 propranolol 2021-0 No 1mg 40 mg 1-04 tablet 00:00: 00 hydroxyzine 2021-0 No 12mg HCl 25 mg 1-04 tablet 00:00: 00 Dose 2020-0 No Unknown 6-08 00:00: 00 levofloxaci 2020-0 No 1mg n 500 mg 6- tablet 00:00: 00 sertraline 2020-0 No 1mg 50 mg - tablet 00:00: 00 Dose 2020-0 No Unknown 5 00:00: 00 Dose 2020-0 No Unknown 03-02 00:00: 00 glucagon 2020-0 2020- No 1mg 1 mg, Univers (GLUCAGEN 12-11 Intravenou ity of DIAGNOSTIC 10:45: 09:48 s, ONCE, 1 [place] KIT) 00 :00 dose, Sat Medical injection 1 12/11/20 at [facility] mg 0445, Routine ondansetron 2020- No 4mg 4 mg, Slow Univers (ZOFRAN 12-11 IV Push, ity of (PF)) 10:45: 09:46 ONCE, 1 [place] injection 4 00 :00 dose, Sat Med ical mg 12/11/20 at [facility] 0445, [place] NaCl 0.9% 2020- No 1000mL at 999 Uni vers (NS) bolus 12-11 mL/hr, ity of infusion 09:45: 10:28 1,000 mL, [place] as 1,000 mL 00 :00 IV Medical Infusion, Branch ONCE, 1 dose, 12/11/20 at 0345, WIL[place] No known No Univers medications ity of [facility] Vital Signs Vital Name Observation Time Observation Value Comments Source Systolic blood 2020-12-11 09:33:00 158 mm[Hg] Univer sity of pressure [facility] Diastolic blood 2020-12-11 09:33:00 89 mm[facility]Hg[facility] 2020-12-11 09:33:00 119 /min [facility] Body temperature 2020-12-11 09:33:00 37.28 Ann Univ ersity of [facility] Respiratory rate 2020-12-11 09:33:00 20 /min Univ ers[facility] Body weight 2020-12-11 09:33:00 111.131 kg Universi ty of [facility] Oxygen saturation in 2020-12-11 09:33:00 99 /min University of Arterial blood by [facility] Pulse oximetry [facility] Systolic blood 2020-12-11 09:33:00 158 mm[Hg] Univer sity of pressure [facility] Diastolic blood 2020-12-11 09:33:00 89 mm[Hg] Unive rsity of pressure [facility] Heart rate 2020-12-11 09:33:00 119 /min Universi ty of [facility] Body temperature 2020-12-11 09:33:00 37.28 Ann [facility] Respiratory rate 2020-12-11 09:33:00 20 /min [facility] ersity of [facility] Body weight 2020-12-11 09:33:00 111.131 kg Universi ty of [facility] Oxygen saturation in 2020-12-11 09:33:00 99 /min University of Arterial blood by [facility] Pulse oximetry [facility] BP Systolic 2022-07-04 09:24:00 122 mm[Hg] BP Diastolic 2022-07-04 09:24:00 83 mm[Hg] Weight Measured 2022-07-04 09:24:00 222.20 pounds Height Measured 2022-07-04 09:24:00 60.11 inches Body Temperature 2022-07-04 09:24:00 97.80 degrees Heart Rate 2022-07-04 09:24:00 78.00 /min Respiratory Rate 2022-07-04 09:24:00 18.00 /min BP Systolic 2022-01-04 08:53:00 123 mm[Hg] BP Diastolic 2022-01-04 08:53:00 85 mm[Hg] Weight Measured 2022-01-04 08:53:00 235.40 pounds Height Measured 2022-01-04 08:53:00 60.11 inches Body Temperature 2022-01-04 08:53:00 98.30 degrees Heart Rate 2022-01-04 08:53:00 73.00 /min Respiratory Rate 2022-01-04 08:53:00 16.00 /min BP Systolic 2021-10-11 08:21:00 BP Diastolic 2021-10-11 08:21:00 Weight Measured 2021-10-11 08:21:00 220.00 pounds Height Measured 2021-10-11 08:21:00 60.11 inches Body Temperature 2021-10-11 08:21:00 Heart Rate 2021-10-11 08:21:00 Respiratory Rate 2021-10-11 08:21:00 Weight Measured 2021-03-15 10:59:00 222.80 pounds Height Measured 2021-03-15 10:59:00 60.11 inches Body Temperature 2021-03-15 10:59:00 98.00 degrees Heart Rate 2021-03-15 10:59:00 68.00 /min Respiratory Rate 2021-03-15 10:59:00 18.00 /min BP Systolic 2021-03-15 10:59:00 109 mm[Hg] BP Diastolic 2021-03-15 10:59:00 67 mm[Hg] BP Systolic 2021-03-09 14:39:00 119 mm[Hg] BP Diastolic 2021-03-09 14:39:00 77 mm[Hg] Weight Measured 2021-03-09 14:39:00 221.40 pounds Height Measured 2021-03-09 14:39:00 60.11 inches Body Temperature 2021-03-09 14:39:00 Heart Rate 2021-03-09 14:39:00 79.00 /min Respiratory Rate 2021-03-09 14:39:00 BP Systolic 2021-03-02 15:16:00 134 mm[Hg] BP Diastolic 2021-03-02 15:16:00 91 mm[Hg] Weight Measured 2021-03-02 15:16:00 221.80 pounds Height Measured 2021-03-02 15:16:00 60.11 inches Body Temperature 2021-03-02 15:16:00 98.10 degrees Heart Rate 2021-03-02 15:16:00 110.00 /min Respiratory Rate 2021-03-02 15:16:00 17.00 /min Procedures Procedure Date / Time Performed Performing Clinician Sour e NOTICE OF PRIVACY 2020-12-11 09:27:37 [facility] CONSENT/REFUSAL FOR 2020-12-11 09:25:11 Doctor Unassigned, [facility] AND Name [facility] TREATMENT Plan of Care Planned Activity Planned Date Details Comments Source Goal Plan of Care Note [code = 38841-8] Goal Plan of Care Note [code = 00154-6] Goal Plan of Care Note [code = 11185-1] Goal Plan of Care Note [code = 61248-9] Goal Plan of Care Note [code = 67599-5] Goal Plan of Care Note [code = 51272-4] Goal Plan of Care Note [code = 00913-8] Encounters Start End Encounter Admission Attending Care Care Encounter Source Date/Time Date/Time Type Type Clinicians Facility Department ID 2022-07-04 2022-07-04 Outpatient [id number] 00:00:00 00:00:00 Visit [id number] 2020-12-11 2020-12-11 [id number] [facility] 03:27:00 04:32:00 Brianna Ordonez [id number] itEva [id number] [facility] [id number] [place] [id number] [facility] 2020-12-11 2020-12-11 [facility] [id number] 03:27:00 04:32:00 Brianna Ordonez [id number] [place] [id number] [place] [address] [id number] [facility] 2020-12-11 2020-12-11 Emergency [facility] [id number] 03:27:00 03:27:00 BRIANNA reynolds [facility] Results Test Description Test Time Test Comments Results Result Comments Source CBC W/AUTO DIFF WITH PLATELETS 2022-07-05 11:42:59 Test Item Value Reference Range Interpretation Comme nts WBC (test code = 1001) 7.8 K/UL 3.5-11.0 RBC (test code = 1002) 4.75 M/UL 4.50-6.10 HEMOGLOBIN (test code = 1003) 14.3 G/DL 13.5-17.0 HEMATOCRIT (test code = 1004) 41.2 % 40.0-51.0 MCV (test code = 1005) 86.7 fL 80.0-99.0 MCH (test code = 1006) 30.1 PG 25.0-33.0 MCHC (test code = 1007) 34.7 G/DL 31.0-36.0 RDW (test code = 1038) 11.7 % 11.5-15.0 NEUTROPHILS (test code = 49.0 % 1008) LYMPHOCYTES (test code = 35.9 % 1010) MONOCYTES (test code = 1011) 9.1 % EOSINOPHILS (test code = 5.5 % 1012) BASOPHILS (test code = 1013) 0.4 % IMMATURE GRANULOCYTES (test 0.1 % code = 1036) NUCLEATED RBCS (test code = 0.0 /100 WBC'S See_Comment [Automated message] The 1065) system which ge nerated this result transmit jaspreet reference range : 0.0. The reference range was not used to interpr et this result as yogi l/abnormal. PLATELET COUNT (test code = 249 K/UL [phone]) ABSOLUTE NEUTROPHILS (test 3.81 K/UL 1.50-7.50 code = 1066) ABSOLUTE LYMPHOCYTES (test 2.79 K/UL 1.00-4.00 code = 1067) ABSOLUTE MONOCYTES (test code 0.71 K/UL 0.20-1.00 = 1068) ABSOLUTE EOSINOPHILS (test 0.43 K/UL 0.00-0.50 code = 1040) ABSOLUTE BASOPHILS (test code 0.03 K/UL 0.00-0.20 = 1069) ABS IMMATURE GRANULOCYTES 0.01 K/UL 0.00-0.10 (test code = 1020) ABS NUCLEATED RBCS (test code 0.00 K/UL 0.00-0.11 = 54883) COMPREHENSIVE METABOLIC [id number] 04:39:34 Test Item Value Reference Range Interpretation Comments GLUCOSE (test code = 92 MG/DL 70-99 2216) BUN (test code = 9 MG/DL 6-20 2207) CREATININE (test 0.86 MG/DL 0.80-1.40 code = 2213) eGFR (2020 CKD-EPI) 114 >60 (test code = 74261) ML/MIN/1.73 CALC BUN/CREAT (test 10 RATIO 6-28 code = 2235) SODIUM (test code = 143 MEQ/L 823-156 0866) POTASSIUM (test code 4.1 MEQ/L 3.5-5.4 = 2227) CHLORIDE (test code 104 MEQ/L 95-107 = 2214) CARBON DIOXIDE (test 27 MEQ/L 19-31 code = 2205) CALCIUM (test code = 9.3 MG/DL 8.5-10.5 2208) PROTEIN, TOTAL (test 7.3 G/DL 6.1-8.3 code = 2228) ALBUMIN (test code = 4.6 G/DL 3.5-5.2 2200) CALC GLOBULIN (test 2.7 G/DL 1.9-3.7 code = 2239) CALC A/G RATIO (test 1.7 RATIO 1.0-2.6 code = 2233) BILIRUBIN, TOTAL 0.5 MG/DL See_Comment [Automated message] (test code = 2206) The syste m which generated this result transmit jaspreet reference range : <=1.2. The refe rence range was not u sed to interpret th is result as normal/abnormal . ALKALINE PHOSPHATASE 57 U/L 40-117 (test code = 2203) AST (test code = 21 U/L 9-50 2217) ALT (test code = 19 U/L 5-50 2218) LIPID [id number] 04:39:34 Test Item Value Reference Range Interpretation Comments CHOLESTEROL (test 160 MG/DL <200 code = 2210) TRIGLYCERIDES (test 86 MG/DL <150 code = 2232) HDL CHOLESTEROL (test 45 MG/DL >39 code = 222) CALC LDL CHOL (test 97 MG/DL <100 NOTE: C ALCULATED LDL code = 2237) IS BASED ON VIVIANA-CANALES METHOD WHICHINCLUDES ADJUSTABLE TRIGLYCERIDE:VL DL CHOLESTEROL RAT IO.THIS FACTOR VARIES B Y MEASURED TRIGLY CERIDE AND NON-HDLCHOL ESTEROL CONCENTRATIONS WITH INCREASED CALCU LATED LDL SEENIN HIGH ER TRIGLYCERIDE OR LOWER NON-HDL SPECIME NS. FOR MOREINFORMATION , SEE CLIENT ANNOUNCE MENT AT [email or web address] RISK RATIO LDL/HDL 2.16 RATIO <3.55 UNLESS O THERWISE (test code = 2238) INDICATED , ALL TESTING PERFORMED [facility], [facility]. [address] [place] [address] [facility] DIRECTOR: KRISTIE HUERTAS M.D. IA NUMBER [id number] CAP ACCREDITATION N O. [id number] CBC W/AUTO [id number] 00:00:00 Test Item Value Reference Range Interpretation Comments WBC (test code = 1001) 7.8 K/UL RBC (test code = 1002) 4.75 M/UL HEMOGLOBIN (test code = 1003) 14.3 G/DL HEMATOCRIT (test code = 1004) 41.2 % MCV (test code = 1005) 86.7 fL MCH (test code = 1006) 30.1 PG MCHC (test code = 1007) 34.7 G/DL RDW (test code = 1038) 11.7 % NEUTROPHILS (test code = 1008) 49.0 % LYMPHOCYTES (test code = 1010) 35.9 % MONOCYTES (test code = 1011) 9.1 % EOSINOPHILS (test code = 1012) 5.5 % BASOPHILS (test code = 1013) 0.4 % IMMATURE GRANULOCYTES (test 0.1 % code = 1036) NUCLEATED RBCS (test code = 0.0 /100WBC'S 1065) PLATELET COUNT (test code = 249 K/UL 1015) ABSOLUTE NEUTROPHILS (test code 3.81 K/UL = 1066) ABSOLUTE LYMPHOCYTES (test code 2.79 K/UL = 1067) ABSOLUTE MONOCYTES (test code = 0.71 K/UL 1068) ABSOLUTE EOSINOPHILS (test code 0.43 K/UL = 1040) ABSOLUTE BASOPHILS (test code = 0.03 K/UL 1069) ABS IMMATURE GRANULOCYTES (test 0.01 K/UL code = 1020) ABS NUCLEATED RBCS (test code = 0.00 K/UL 52553) CBC W/AUTO [id number] 00:00:00 Test Item Value Reference Range Interpretation Comments WBC (test code = 1001) 7.8 K/UL RBC (test code = 1002) 4.75 M/UL HEMOGLOBIN (test code = 1003) 14.3 G/DL HEMATOCRIT (test code = 1004) 41.2 % MCV (test code = 1005) 86.7 fL MCH (test code = 1006) 30.1 PG MCHC (test code = 1007) 34.7 G/DL RDW (test code = 1038) 11.7 % NEUTROPHILS (test code = 1008) 49.0 % LYMPHOCYTES (test code = 1010) 35.9 % MONOCYTES (test code = 1011) 9.1 % EOSINOPHILS (test code = 1012) 5.5 % BASOPHILS (test code = 1013) 0.4 % IMMATURE GRANULOCYTES (test 0.1 % code = 1036) NUCLEATED RBCS (test code = 0.0 /100WBC'S 1065) PLATELET COUNT (test code = 249 K/UL 1015) ABSOLUTE NEUTROPHILS (test code 3.81 K/UL = 1066) ABSOLUTE LYMPHOCYTES (test code 2.79 K/UL = 1067) ABSOLUTE MONOCYTES (test code = 0.71 K/UL 1068) ABSOLUTE EOSINOPHILS (test code 0.43 K/UL = 1040) ABSOLUTE BASOPHILS (test code = 0.03 K/UL 1069) ABS IMMATURE GRANULOCYTES (test 0.01 K/UL code = 1020) ABS NUCLEATED RBCS (test code = 0.00 K/UL 13169) CBC W/AUTO [id number] 00:00:00 Test Item Value Reference Range Interpretation Comments WBC (test code = 1001) 7.8 K/UL RBC (test code = 1002) 4.75 M/UL HEMOGLOBIN (test code = 1003) 14.3 G/DL HEMATOCRIT (test code = 1004) 41.2 % MCV (test code = 1005) 86.7 fL MCH (test code = 1006) 30.1 PG MCHC (test code = 1007) 34.7 G/DL RDW (test code = 1038) 11.7 % NEUTROPHILS (test code = 1008) 49.0 % LYMPHOCYTES (test code = 1010) 35.9 % MONOCYTES (test code = 1011) 9.1 % EOSINOPHILS (test code = 1012) 5.5 % BASOPHILS (test code = 1013) 0.4 % IMMATURE GRANULOCYTES (test 0.1 % code = 1036) NUCLEATED RBCS (test code = 0.0 /100WBC'S 1065) PLATELET COUNT (test code = 249 K/UL 1015) ABSOLUTE NEUTROPHILS (test code 3.81 K/UL = 1066) ABSOLUTE LYMPHOCYTES (test code 2.79 K/UL = 1067) ABSOLUTE MONOCYTES (test code = 0.71 K/UL 1068) ABSOLUTE EOSINOPHILS (test code 0.43 K/UL = 1040) ABSOLUTE BASOPHILS (test code = 0.03 K/UL 1069) ABS IMMATURE GRANULOCYTES (test 0.01 K/UL code = 1020) ABS NUCLEATED RBCS (test code = 0.00 K/UL 25674) COMPREHENSIVE METABOLIC [id number] 00:00:00 Test Item Value Reference Range Interpretation Comments GLUCOSE (test code = 2217) 92 MG/DL BUN (test code = 2208) 9 MG/DL CREATININE (test code = 2214) 0.86 MG/DL eGFR (2020 CKD-EPI) (test 114 ML/MIN/1.73 code = 40179) CALC BUN/CREAT (test code = 10 RATIO 2235) SODIUM (test code = 2231) 143 MEQ/L POTASSIUM (test code = 2228) 4.1 MEQ/L CHLORIDE (test code = 2215) 104 MEQ/L CARBON DIOXIDE (test code = 27 MEQ/L 220) CALCIUM (test code = 2209) 9.3 MG/DL PROTEIN, TOTAL (test code = 7.3 G/DL 222) ALBUMIN (test code = 2201) 4.6 G/DL CALC GLOBULIN (test code = 2.7 G/DL 2240) CALC A/G RATIO (test code = 1.7 RATIO 2234) BILIRUBIN, TOTAL (test code = 0.5 MG/DL 220) ALKALINE PHOSPHATASE (test 57 U/L code = 2204) AST (test code = 2218) 21 U/L ALT (test code = 2219) 19 U/L COMPREHENSIVE METABOLIC [id number] 00:00:00 Test Item Value Reference Range Interpretation Comments GLUCOSE (test code = 2217) 92 MG/DL BUN (test code = 2208) 9 MG/DL CREATININE (test code = 2214) 0.86 MG/DL eGFR (2020 CKD-EPI) (test 114 ML/MIN/1.73 code = 51146) CALC BUN/CREAT (test code = 10 RATIO 2235) SODIUM (test code = 2231) 143 MEQ/L POTASSIUM (test code = 2228) 4.1 MEQ/L CHLORIDE (test code = 2215) 104 MEQ/L CARBON DIOXIDE (test code = 27 MEQ/L 2205) CALCIUM (test code = 2209) 9.3 MG/DL PROTEIN, TOTAL (test code = 7.3 G/DL 2228) ALBUMIN (test code = 2201) 4.6 G/DL CALC GLOBULIN (test code = 2.7 G/DL 2239) CALC A/G RATIO (test code = 1.7 RATIO 2234) BILIRUBIN, TOTAL (test code = 0.5 MG/DL 2206) ALKALINE PHOSPHATASE (test 57 U/L code = 2204) AST (test code = 2218) 21 U/L ALT (test code = 2219) 19 U/L LIPID [id number] 00:00:00 Test Item Value Reference Range Interpretation Comments CHOLESTEROL (test code = 2210) 160 MG/DL TRIGLYCERIDES (test code = 2232) 86 MG/DL HDL CHOLESTEROL (test code = 2220) 45 MG/DL CALC LDL CHOL (test code = 2237) 97 MG/DL RISK RATIO LDL/HDL (test code = 2.16 RATIO 2238) LIPID [id number] 00:00:00 Test Item Value Reference Range Interpretation Comments CHOLESTEROL (test code = 2210) 160 MG/DL TRIGLYCERIDES (test code = 2232) 86 MG/DL HDL CHOLESTEROL (test code = 2220) 45 MG/DL CALC LDL CHOL (test code = 2237) 97 MG/DL RISK RATIO LDL/HDL (test code = 2.16 RATIO 2238) CULTURE, [id number] 00:00:00 Test Item Value Reference Range Interpretation Comments CULTURE, URINE (test SPECIMEN NUMBER: code = 94965) [id number] CULTURE, [id number] 00:00:00 Test Item Value Reference Range Interpretation Comments CULTURE, URINE (test SPECIMEN NUMBER: code = 05777) [id number] CHLAMYDIA, AMPLIFIED, [id number] 00:00:00 Test Item Value Reference Range Interpretation Comments CHLAMYDIA, NAAT (test code = 35621) NEGATIVE CHLAMYDIA, AMPLIFIED, [id number] 00:00:00 Test Item Value Reference Range Interpretation Comments CHLAMYDIA, NAAT (test code = 29749) NEGATIVE GC, AMPLIFIED, [id number] 00:00:00 Test Item Value Reference Range Interpretation Comments GONORRHEA, NAAT (test code = 80610) NEGATIVE GC, AMPLIFIED, [id number] 00:00:00 Test Item Value Reference Range Interpretation Comments GONORRHEA, NAAT (test code = 20618) NEGATIVE COMPREHENSIVE METABOLIC [id number] 00:00:00 Test Item Value Reference Range Interpretation Comments GLUCOSE (test code = 2217) 98 MG/DL BUN (test code = 2208) 9 MG/DL CREATININE (test code = 2214) 0.94 MG/DL eGFR AMER. (test code 121 ML/MIN/1.73 = 71857) eGFR NON- AMER. (test 105 ML/MIN/1.73 code = 47910) CALC BUN/CREAT (test code = 10 RATIO 2235) SODIUM (test code = 2231) 138 MEQ/L POTASSIUM (test code = 2228) 4.3 MEQ/L CHLORIDE (test code = 2215) 99 MEQ/L CARBON DIOXIDE (test code = 24 MEQ/L 6) CALCIUM (test code = 2209) 10.0 MG/DL PROTEIN, TOTAL (test code = 8.2 G/DL 2228) ALBUMIN (test code = 2201) 4.9 G/DL CALC GLOBULIN (test code = 3.3 G/DL 2240) CALC A/G RATIO (test code = 1.5 RATIO 2234) BILIRUBIN, TOTAL (test code = 0.6 MG/DL 2206) ALKALINE PHOSPHATASE (test 70 U/L code = 2204) AST (test code = 2218) 18 U/L ALT (test code = 2219) 11 U/L COMPREHENSIVE METABOLIC [id number] 00:00:00 Test Item Value Reference Range Interpretation Comments GLUCOSE (test code = 2217) 98 MG/DL BUN (test code = 2208) 9 MG/DL CREATININE (test code = 2214) 0.94 MG/DL eGFR AMER. (test code 121 ML/MIN/1.73 = 52729) eGFR NON- AMER. (test 105 ML/MIN/1.73 code = 60671) CALC BUN/CREAT (test code = 10 RATIO 2235) SODIUM (test code = 2231) 138 MEQ/L POTASSIUM (test code = 2228) 4.3 MEQ/L CHLORIDE (test code = 2215) 99 MEQ/L CARBON DIOXIDE (test code = 24 MEQ/L 2205) CALCIUM (test code = 2209) 10.0 MG/DL PROTEIN, TOTAL (test code = 8.2 G/DL 2228) ALBUMIN (test code = 2201) 4.9 G/DL CALC GLOBULIN (test code = 3.3 G/DL 2239) CALC A/G RATIO (test code = 1.5 RATIO 2234) BILIRUBIN, TOTAL (test code = 0.6 MG/DL 2206) ALKALINE PHOSPHATASE (test 70 U/L code = 2204) AST (test code = 2218) 18 U/L ALT (test code = 2219) 11 U/L LIPID [id number] 00:00:00 Test Item Value Reference Range Interpretation Comments CHOLESTEROL (test code = 2210) 135 MG/DL TRIGLYCERIDES (test code = 2232) 72 MG/DL HDL CHOLESTEROL (test code = 2220) 41 MG/DL CALC LDL CHOL (test code = 2237) 79 MG/DL RISK RATIO LDL/HDL (test code = 1.93 RATIO 2238) LIPID [id number] 00:00:00 Test Item Value Reference Range Interpretation Comments CHOLESTEROL (test code = 2210) 135 MG/DL TRIGLYCERIDES (test code = 2232) 72 MG/DL HDL CHOLESTEROL (test code = 2220) 41 MG/DL CALC LDL CHOL (test code = 2237) 79 MG/DL RISK RATIO LDL/HDL (test code = 1.93 RATIO 2238) HEMOGLOBIN [id number] 00:00:00 Test Item Value Reference Range Interpretation Comments HEMOGLOBIN A1c (test code = 46718) 5.4 % HEMOGLOBIN [id number] 00:00:00 Test Item Value Reference Range Interpretation Comments HEMOGLOBIN A1c (test code = 19656) 5.4 % HEMOGLOBIN [id number] 00:00:00 Test Item Value Reference Range Interpretation Comments HEMOGLOBIN A1c (test code = 89773) 5.4 %
[2022-08-05] MEDS ORDERED: NA CHLORIDE 0.9% 1,000 ML ONE (15:20)
[2022-08-05] MEDS ORDERED: FAMOTIDINE 20 MG/2 ML VIAL IV ONE (15:20)
[2022-08-05] MEDS ORDERED: GLUCAGON 1 MG/VIAL ONE (15:20)
[2022-08-05] MEDS ORDERED: ONDANSETRON 4 MG/2 ML VIAL ONE (15:20)
[2022-08-05 15:43] LABS: Absolute Lymphocytes (CBC) 1.8 K/uL (0.7-4.9); Lymphocytes % 23.7 % (15.3-44.8); MCV 87.9 fL (80-100); MPV 7.1 fL (7.6-11.3)
[2022-08-05 15:57] LABS: Albumin 3.8 g/dL (3.4-5.0); Bilirubin Total 0.7 mg/dL (0.2-1.0); Potassium 3.8 mmol/L (3.5-5.1); Protein, Total 7.5 g/dL (6.4-8.2)
--- NOTE | 2022-08-05 16:34 | RAD REPORT ---
EXAM DESCRIPTION: RAD - Chest Single View - 08/05/2022 3:58 pm CLINICAL HISTORY: dysphagia COMPARISON: Portable 02/24/2021 TECHNIQUE: AP portable chest image was obtained 08/05/2022 3:58 pm . FINDINGS: Lungs are clear. Heart and vasculature are normal. No measurable pleural effusion and no p neumothorax. No acute bony abnormality seen. No acute aortic findings suspected. IMPRESSION: No acute cardiopulmonary process. No significant change from comparison study.
--- NOTE | 2022-08-05 16:45 | ER ---
Nurse's Notes [facility] Name: Pato Gardiner Age: 37 yrs Sex: Male : 1985 Arrival Date: 08/05/2022 Time: 14:49 Bed 14 Private MD: Diagnosis: Foreign body of alimentary tract, part unspecified, initial encounter Presentation: 08/05 14:54 Chief complaint: Blueberry muffin stuck in throat. Not tolerating liquids. Coronavirus hb screen: At this time, the client does not indicate any symptoms associated with coronavirus-19. Ebola Screen: No symptoms or risks identified at this time. Risk Assessment: Do you want to hurt yourself or someone else? Patient reports no desire to harm self or others. Onset of symptoms was August 05, 2022. 14:54 Method Of Arrival: Ambulatory hb 14:54 Acuity: ANDREW 3 hb 18:04 Initial Sepsis Screen: Does the patient meet any 2 criteria? No. Patient's initial ko1 sepsis screen is negative. Does the patient have a suspected source of infection? No. Patient's initial sepsis screen is negative. Historical: - Allergies: 14:55 No Known Allergies; hb - PMHx: 15:31 Anxiety; Hypertension; jl7 - Immunization history:: Adult Immunizations unknown. - Social history:: Smoking status: Patient denies any tobacco usage or history of. Screenin:30 Abuse screen: Denies threats or abuse. Denies injuries from another. Nutritional ko1 screening: No deficits noted. Tuberculosis screening: No symptoms or risk factors identified. Fall Risk None identified. Assessment: 15:30 General: Appears in no apparent distress. comfortable, Behavior is calm, cooperative, ko1 appropriate for age. Pain: Denies pain. Neuro: No deficits noted. Cardiovascular: No deficits noted. Respiratory: No deficits noted. GI: No deficits noted. : No deficits noted. EENT: Reports food stuck in throat. 15:30 Derm: No deficits noted. Musculoskeletal: No deficits noted. ko1 Vital Signs: 14:54 BP 136 / 93; Pulse 76; Resp 16; Temp 98.2; Pulse Ox 96% on R/A; Weight 100.7 kg; Height hb 5 ft. 11 in. (180.34 cm); Pain 3/10; 15:30 BP 117 / 78; Pulse 72; ko1 17:28 BP 118 / 72; Pulse 70; Pulse Ox 98% ; ko1 14:54 Body Mass Index 30.96 (100.70 kg, 180.34 cm) hb ED Course: 14:49 Patient arrived in ED. am2 14:51 Boubacar Pulido PA is PHCP. cp 14:51 Ivan Childs MD is Attending Physician. cp 14:53 Sandhya Geiger, JAIDEN is Primary Nurse. ko1 14:55 Triage completed. hb 15:23 CBC with Diff Sent. ko1 15:23 CMP Sent. ko1 15:23 Lipase Sent. ko1 15:30 Patient has correct armband on for positive identification. Placed in gown. Bed in low ko1 position. Call light in reach. Side rails up X 1. Client placed on continuous cardiac and pulse oximetry monitoring. NIBP monitoring applied. 15:31 Inserted saline lock: 22 gauge in right antecubital area, using aseptic technique. kr3 Blood collected. 16:00 XRAY Chest (1 view) In Process Unspecified. EDMS 16:54 initiated a transfer with Quita Nobles from the [facility]. eb 16:56 SARS RAPID Sent. zm 17:20 connected the hospitalist contractor field hauling for [facility] with Boubacar Ryan for patient transfer consultation. 17:28 No provider procedures requiring assistance completed. ko1 17:33 administrative approval given by Quita Nobles/ patient has been accepted to [facility] [id number]/ Dr. Gina Trinidad has accepted the patient in transfer/ report to be called to [phone]. 17:51 Ptt, Activated Sent. ko1 17:51 PT-INR Sent. ko1 18:03 Patient transferred, IV remains in place. ko1 18:03 Report given to Feli Jimenez RN at [facility]. ko1 18:04 Arm band placed on right wrist. ko1 Administered Medications: 15:23 Drug: NS 0.9% 1000 ml Route: IV; Rate: 1 bolus; Site: right antecubital; jl7 15:23 Drug: Pepcid (famotidine) 20 mg Route: IVP; Site: right antecubital; jl7 15:24 Drug: Zofran (Ondansetron) 4 mg Route: IVP; Site: right antecubital; jl7 15:26 Drug: GlucaGen (glucagon) 1 mg Route: IVP; Site: right antecubital; jl7 Medication: 17:28 VIS not applicable for this client. ko1 Outcome: 16:45 ER care complete, transfer ordered by MD. mcmahon 18:03 Transferred by ground EMS [facility]. to [facility], Transfer ko1 form completed. X-rays sent w/ patient. 18:03 Condition: stable 18:03 Discharge instructions given to patient, Instructed on the need for transfer, Demonstrated understanding of instructions. 18:28 Patient left the ED. ko1 Signatures: Dispatcher [employer] EDMS Boubacar Pulido PA PA cp Cande Chavez, RN RN Aashish Smith RN RN jl7 Olya Dowell Elizabeth eb Martinez, Zaina zm Reid, Kelley, RN RN kr3 Sandhya Geiger RN RN ko1 Corrections: (The following items were deleted from the chart) 18:27 18:03 Transferred by private ambulance to [facility], Transfer form ko1 completed. X-rays sent w/ patient. ko1
--- NOTE | 2022-08-05 16:45 | EDPHYS ---
Physician Documentation [facility] Name: Pato Gardiner Age: 37 yrs Sex: Male : 1985 Arrival Date: 08/05/2022 Time: 14:49 Bed 14 Private MD: ED Physician Ivan Childs HPI: 08/05 15:05 This 37 yrs old Male presents to ER via Ambulatory with complaints of Foreign cp Body In Throat - food stuck. 15:05 The patient presents with a foreign body sensation in the throat. Onset: The cp symptoms/episode began/occurred today. 15:05 Severity of symptoms: in the emergency department the symptoms are unchanged. cp Associated signs and symptoms: Pertinent positives: nausea, vomiting. Patient reports feeling of food being stuck after eating muffin this afternoon. Patient reports history of esophageal dilation procedure in the past. Historical: - Allergies: 14:55 No Known Allergies; hb - PMHx: 15:31 Anxiety; Hypertension; jl7 - Immunization history:: Adult Immunizations unknown. - Social history:: Smoking status: Patient denies any tobacco usage or history of. ROS: 15:10 Constitutional: Negative for body aches, chills, fever. cp 15:10 Eyes: Negative for injury, pain, redness, and discharge. cp 15:10 ENT: Positive for difficulty swallowing, foreign body sensation, Negative for sore throat, difficulty handling secretions. 15:10 Cardiovascular: Negative for chest pain, palpitations. 15:10 Respiratory: Negative for cough, shortness of breath, wheezing. 15:10 Abdomen/GI: Positive for nausea and vomiting, Negative for diarrhea, constipation, hematemesis. 15:10 Neuro: Negative for altered mental status, dizziness, headache, weakness. 15:10 All other systems are negative. Exam: 15:15 Constitutional: The patient appears in no acute distress, alert, awake, cp non-diaphoretic, non-toxic, well developed, well nourished. 15:15 Head/Face: Normocephalic, atraumatic. cp 15:15 Eyes: Periorbital structures: appear normal, Conjunctiva: normal, no exudate, no injection, Sclera: no appreciated abnormality, Lids and lashes: appear normal, bilaterally. 15:15 ENT: External ear(s): are unremarkable, Nose: is normal, Mouth: Lips: moist, Oral mucosa: moist, Posterior pharynx: Airway: no evidence of obstruction, patent, erythema, is not appreciated, exudate, is not appreciated. 15:15 Neck: ROM/movement: is normal, is supple, without pain, no range of motions limitations, no nuchal rigidity. 15:15 Chest/axilla: Inspection: normal. 15:15 Cardiovascular: Rate: normal, Rhythm: regular, Edema: is not appreciated, JVD: is not appreciated. 15:15 Respiratory: the patient does not display signs of respiratory distress, Respirations: normal, no use of accessory muscles, no retractions, labored breathing, is not present, Breath sounds: are clear throughout, no decreased breath sounds, no stridor, no wheezing. 15:15 Abdomen/GI: Inspection: abdomen appears normal, Palpation: abdomen is soft and non-tender, in all quadrants. 15:15 Back: pain, is absent, ROM is normal. 15:15 Neuro: Orientation: to person, place \T\ time. Mentation: is normal, Motor: moves all fours, strength is normal, Sensation: is normal. Vital Signs: 14:54 BP 136 / 93; Pulse 76; Resp 16; Temp 98.2; Pulse Ox 96% on R/A; Weight 100.7 kg; Height hb 5 ft. 11 in. (180.34 cm); Pain 3/10; 15:30 BP 117 / 78; Pulse 72; ko1 17:28 BP 118 / 72; Pulse 70; Pulse Ox 98% ; ko1 14:54 Body Mass Index 30.96 (100.70 kg, 180.34 cm) hb MDM: 14:55 Patient medically screened. 17:25 Data reviewed: vital signs, nurses notes, lab test result(s), radiologic studies, plain cp films. 17:25 Test interpretation: by ED physician or midlevel provider: plain radiologic studies. 17:35 Physician consultation: was contacted at 17:35, regarding regarding transfer, [facility] in [facility], accepting physician will be DR Trinidad patient's condition. 08/05 14:56 Order name: CBC with Diff; Complete Time: 16:00 cp 08/05 16:00 Interpretation: Normal except: RDW 12.0; MPV 7.1. 08/05 14:56 Order name: CMP; Complete Time: 16:00 cp 08/05 17:22 Interpretation: Normal except: CL 110; GLUC 115; GLOB 3.7. cp 08/05 14:56 Order name: Lipase; Complete Time: 16:00 cp 08/05 16:45 Order name: SARS RAPID; Complete Time: 17:22 eb 08/05 17:22 Interpretation: Reviewed. cp 08/05 17:29 Order name: PT-INR cp 08/05 17:29 Order name: Ptt, Activated cp 08/05 14:56 Order name: IV Saline Lock; Complete Time: 15:23 cp 08/05 14:56 Order name: Labs collected and sent; Complete Time: 15:23 cp 08/05 14:56 Order name: XRAY Chest (1 view); Complete Time: 16:37 cp 08/05 16:38 Interpretation: Report review. cp 08/05 16:06 Order name: PO challenge; Complete Time: 16:56 cp 08/05 17:32 Order name: NPO; Complete Time: 17:51 cp Administered Medications: 15:23 Drug: NS 0.9% 1000 ml Route: IV; Rate: 1 bolus; Site: right antecubital; jl7 15:23 Drug: Pepcid (famotidine) 20 mg Route: IVP; Site: right antecubital; jl7 15:24 Drug: Zofran (Ondansetron) 4 mg Route: IVP; Site: right antecubital; jl7 15:26 Drug: GlucaGen (glucagon) 1 mg Route: IVP; Site: right antecubital; jl7 Disposition: 08/06 10:16 Co-signature as Attending Physician, Ivan Childs MD I agree with the assessment and kdr plan of care. Disposition Summary: 08/05/22 16:45 Transfer Ordered Transfer Location: Other Acute Care Facility cp Reason: Higher level of care cp Condition: Stable cp Problem: new cp Symptoms: are unchanged cp Accepting Physician: DR Gina Trinidad(08/05/22 18:28) ko1 Diagnosis - Foreign body of alimentary tract, part unspecified, initial encounter cp Forms: - Medication Reconciliation Form cp - SBAR form cp Signatures: Dispatcher [employer] Ivan Kingsley MD MD kdr Boubacar Pulido PA PA cp Cande Chavez RN Aashish Kirkpatrick RN RN jl7 Sandhya Geiger RN RN ko1 Corrections: (The following items were deleted from the chart) 08/05 17:22 16:37 Normal except: CL 110; GLUC 115. cp cp 18: 16:45 Doctor cp cp 18: 18:23 DR Gina Trinidad cp ko1
[2022-08-05 17:18] LABS: SARS-CoV-2 Antigen Rapid Res Negative (Negative)
[2022-08-05 18:23] LABS: Protime INR 1.06
[2022-08-05 19:21] VITALS: TEMP 98.2
[2022-08-05 19:28] VITALS: BP 118/72; O2SAT 98
== END 2022-08-05 18:28 ==
LOC: ER 14:48
DX: T18.9XXA Foreign body of alimentary tract, part unspecified, initial encounter (principal); R11.2 Nausea with vomiting, unspecified; Z20.822 Contact with and (suspected) exposure to COVID-19; I10 Essential (primary) hypertension
CPT/HCPCS: 85025; 36415; 85610; 85730; 83690; 80053; 71045; 96375; 96374; 99285; 87811; J1610; J7030; J2405

== ENCOUNTER 2024-12-13 11:59 | Day surgery (SDC) | payer BC ==
[2024-12-13] MEDS ORDERED: NA CHLORIDE 0.9% 500 ML ONE (12:33)
[2024-12-13] MEDS ORDERED: FAMOTIDINE 20 MG/2 ML VIAL IV ONE (12:52)
[2024-12-13] MEDS ORDERED: GLUCAGON 1 MG/VIAL ONE ×2 (12:52→14:02)
[2024-12-13] MEDS ORDERED: ONDANSETRON 4 MG/2 ML VIAL ONE ×2 (12:52→16:18)
[2024-12-13 12:55] LABS: Absolute Eosinophils 0.3 K/uL (0-0.5); Absolute Lymphocytes (CBC) 2.1 K/uL (0.7-4.9); Absolute Monocytes 0.8 K/uL (0.1-1.3); Absolute Neutrophil 6.6 K/uL (1.8-8.0); Basophils % 0.5 % (0-1.3); Eosinophils % 3.1 % (0-4.4); Hematocrit 47.5 % (39.6-49.0); Hemoglobin 16.2 g/dL (13.6-17.9); Lymphocytes % 21.6 % (15.3-44.8); MCH 30.6 pg (27.0-35.0); MCHC 34.1 g/dL (32.0-36.0); MCV 89.5 fL (80-100); MPV 7.5 fL (7.6-11.3); Monocytes % 8.2 % (3.3-12.3); Neutrophils % 66.6 % (41.7-73.7); Platelets 231 thou/uL (152-406); RBC Red Blood Cell Count 5.31 M/uL (4.33-5.43); Red Cell Distribution Width 12.3 % (12.1-15.2)
--- NOTE | 2024-12-13 13:02 | RAD REPORT ---
EXAM:Neck Soft Tissue HISTORY: FORIEGN BODY COMPARISON: None IMPRESSION: No radiopaque foreign body identified. Airway appears widely patent.
--- NOTE | 2024-12-13 13:02 | RAD REPORT ---
EXAM: Chest Pa And Lat (2 Views) HISTORY: 39 years Male fb throat COMPARISON: 08/05/2022 FINDINGS: LUNGS/PLEURA: The lungs are clear. No pleural effusions or pneumothorax. No pulmonary edema. CARDIAC/MEDIASTINUM: The cardiac silhouette is within normal limits. UPPER ABDOMEN: No significant abnormality. BONES: No acute abnormality. LINES/TUBES/OTHER: N/A IMPRESSION: No evidence of acute cardiopulmonary disease. No radiopaque foreign body.
[2024-12-13 13:10] LABS: Albumin 3.8 g/dL (3.4-5.0); Anion Gap 9.8 mEq/L (5.0-15.0); Bilirubin Total 0.8 mg/dL (0.2-1.0); Globulin 3.9 g/dL (2.3-3.5); Potassium 3.8 mEq/L (3.5-5.1); Protein, Total 7.7 g/dL (6.4-8.2)
--- NOTE | 2024-12-13 14:18 | EDPHYS ---
Physician Documentation [facility] Name: Pato Gardiner Age: 39 yrs Sex: Male : 1985 Arrival Date: 12/13/2024 Time: 11:59 Bed 5 Private MD: ED Physician Boubacar Carmona HPI: 12/13 12:41 This 39 yrs old Male presents to ER via Ambulatory with complaints of Foreign daphne Body In Throat. 12:41 The patient presents to the emergency department with nausea, that is moderate, daphne vomiting, that is intermittent. Possible causes: fb in esophageal. The symptoms are aggravated by nothing. The symptoms are alleviated by nothing. Severity of symptoms: At their worst the symptoms were moderate in the emergency department the symptoms have improved mildly. Historical: - Allergies: 12:23 No Known Allergies; iw - Home Meds: 12:23 Propranolol Oral [Active]; iw - PMHx: 12:23 Anxiety; Hypertension; iw - PSHx: 12:23 Appendectomy; iw - Immunization history:: Adult Immunizations not up to date. - Infectious Disease History:: Denies. - Social history:: Smoking status: Reported history of juuling and/or vaping. Patient/guardian denies using tobacco, Stopped _ months ago 1 Patient uses alcohol, quit recently . ROS: 12:43 Constitutional: Negative for fever, chills, and weight loss, Eyes: Negative for injury, daphne pain, redness, and discharge, ENT: Negative for injury, pain, and discharge, Neck: Negative for injury, pain, and swelling, Cardiovascular: Negative for chest pain, palpitations, and edema, Respiratory: Negative for shortness of breath, cough, wheezing, and pleuritic chest pain, Back: Negative for injury and pain, : Negative for injury, bleeding, discharge, and swelling, MS/Extremity: Negative for injury and deformity, Skin: Negative for injury, rash, and discoloration, Neuro: Negative for headache, weakness, numbness, tingling, and seizure, Psych: Negative for depression, anxiety, suicide ideation, homicidal ideation, and hallucinations, Allergy/Immunology: Negative for hives, rash, and allergies, Endocrine: Negative for neck swelling, polydipsia, polyuria, polyphagia, and marked weight changes, Hematologic/Lymphatic: Negative for swollen nodes, abnormal bleeding, and unusual bruising, 12:43 Abdomen/GI: Positive for abdominal pain, nausea and vomiting, Exam: 12:43 Constitutional: This is a well developed, well nourished patient who is awake, alert, daphne and in no acute distress. Head/Face: Normocephalic, atraumatic. Eyes: Pupils equal round and reactive to light, extra-ocular motions intact. Lids and lashes normal. Conjunctiva and sclera are non-icteric and not injected. Cornea within normal limits. Periorbital areas with no swelling, redness, or edema. ENT: Nares patent. No nasal discharge, no septal abnormalities noted. Tympanic membranes are normal and external auditory canals are clear. Oropharynx with no redness, swelling, or masses, exudates, or evidence of obstruction, uvula midline. Mucous membranes moist. Neck: Trachea midline, no thyromegaly or masses palpated, and no cervical lymphadenopathy. Supple, full range of motion without nuchal rigidity, or vertebral point tenderness. No Meningismus. Chest/axilla: Normal chest wall appearance and motion. Nontender with no deformity. No lesions are appreciated. Cardiovascular: Regular rate and rhythm with a normal S1 and S2. No gallops, murmurs, or rubs. Normal PMI, no JVD. No pulse deficits. Respiratory: Lungs have equal breath sounds bilaterally, clear to auscultation and percussion. No rales, rhonchi or wheezes noted. No increased work of breathing, no retractions or nasal flaring. Abdomen/GI: Soft, non-tender, with normal bowel sounds. No distension or tympany. No guarding or rebound. No evidence of tenderness throughout. Back: No spinal tenderness. No costovertebral tenderness. Full range of motion. Male : Normal genitalia with no discharge or lesions. Skin: Warm, dry with normal turgor. Normal color with no rashes, no lesions, and no evidence of cellulitis. MS/ Extremity: Pulses equal, no cyanosis. Neurovascular intact. Full, normal range of motion., bilateral aka Neuro: Awake and alert, GCS 15, oriented to person, place, time, and situation. Cranial nerves II-XII grossly intact. Motor strength 5/5 in all extremities. Sensory grossly intact. Cerebellar exam normal. Normal gait. Psych: Awake, alert, with orientation to person, place and time. Behavior, mood, and affect are within normal limits. 12:51 ECG was reviewed by the Attending Physician. [facility] Vital Signs: 12:21 BP 143 / 83; Pulse 99; Resp 18; Temp 97.4; Pulse Ox 98% on R/A; Weight 97.52 kg; Height iw 5 ft. 11 in. ; Pain 0/10; 13:30 BP 119 / 79; Pulse 80; Resp 16; Pulse Ox 99% on R/A; db 14:33 BP 134 / 87; Pulse 73; Resp 15; Pulse Ox 98% ; jl7 12:21 Body Mass Index 29.99 (97.52 kg, 180.34 cm) iw 12:21 Pain Scale: Adult iw MDM: 12:07 Medical Screening Exam initiated daphne 12:46 Differential diagnosis: Nonspecific abd pain, gastritis, pancreatitis, viral daphne gastroenteritis, gastroenteritis. Data reviewed: vital signs, nurses notes, lab test result(s), EKG, radiologic studies, plain films. Consideration of Admission/Observation Escalation of care including admission/observation considered. I considered the following discharge prescriptions or medication management in the emergency department Medications were administered in the Emergency Department. See MAR. Independent interpretation of the following test(s) in the Emergency Department EKG: See my EKG interpretation above. Test considered but Not performed: CT: no ct chest. Care significantly affected by the following chronic conditions: Hypertension, anxiety , many food boluses in eso. 12/13 12:08 Order name: CBC with Diff; Complete Time: 13:40 [facility] 12/13 12:08 Order name: CMP; Complete Time: 13:40 [facility] 12/13 15:08 Order name: Basic Metabolic Panel EDMS 12/13 15:08 Order name: Basic Metabolic Panel EDMS 12/13 15:08 Order name: CBC with Automated Diff EDMS 12/13 15:08 Order name: CBC with Automated Diff EDMS 12/13 12:08 Order name: Neck Soft Tissue XRAY; Complete Time: 13:40 [facility] 12/13 12:08 Order name: Chest Pa And Lat (2 Views) XRAY; Complete Time: 13:40 [facility] 12/13 12:36 Order name: EKG; Complete Time: 12:36 db 12/13 12:36 Order name: EKG - Nurse/Tech; Complete Time: 12:42 db 12/13 13:39 Order name: PO challenge: soda; Complete Time: 14:29 daphne EC:51 Rate is 78 beats/min. Rhythm is regular. QRS [place] is Normal. HI interval is normal. QRS daphne interval is normal. QT interval is normal. No Q waves. T waves are Normal. No ST changes noted. Clinical impression: Normal ECG and No evidence of ischemia. Interpreted by me. Reviewed by me. Administered Medications: 12:45 Drug: NS 0.9% IV 500 ml 500 ml IV at 1 bolus once; to be given as a bolus over 30 db minutes Volume: 500 ml; Route: IV; Rate: 1 bolus; Site: right antecubital; 14:12 Follow up: Response: No adverse reaction; IV Status: Completed infusion; IV Intake: db 500ml 12:45 Drug: Ondansetron IVP 4 mg IVP once; over 2 minutes Route: IVP; Site: right antecubital;db 14:12 Follow up: Response: No adverse reaction db 12:45 Drug: Famotidine IVP 20 mg IVP once; dilute with 10 mL 0.9% NaCl; give over 2 minutes db Route: IVP; Site: right antecubital; 14:12 Follow up: Response: No adverse reaction db 12:45 Drug: Glucagon IVP 1 mg IVP once Route: IVP; Site: right antecubital; db 14:11 Follow up: Response: No adverse reaction db 14:05 Drug: Glucagon IVP 1 mg IVP once Route: IVP; Site: right antecubital; db 14:29 Follow up: Response: No adverse reaction db Disposition Summary: 12/13/24 14:29 Hospitalization Ordered Notes: Hospitalization Status: Observation(12/13/24 14:29) daphne Provider: Zeke Garcia(12/13/24 14:29) daphne Condition: Stable(12/13/24 14:29) daphne Problem: new(12/13/24 14:29) daphne Symptoms: have improved(12/13/24 14:29) daphne Bed/Room Type: Standard(12/13/24 14:29) daphne Location: Operating Room(12/13/24 15:12) hb Room Assignment: (12/13/24 15:12) hb Diagnosis - Food in esophagus(12/13/24 14:29) daphne - Vomiting(12/13/24 14:29) daphne Forms: - Medication Reconciliation Form daphne - SBAR form daphne - Leadership Thank You Letter daphne Signatures: Dispatcher [employer] EDBoubacar Denton MD MD cha Williams, Irene RN RN iw Cande Chavez RN RN hb Michelle Wall RN RN db Jose Jolly ty Corrections: (The following items were deleted from the chart) 14:28 14:17 Observation daphne daphne 14:28 14:17 Willis De La Cruz daphne daphne 14:28 14:17 Telemetry/MedSurg (Inpatient) daphne daphne 14:28 14:17 Stable daphne daphne 14:28 14:17 new daphne daphne 14:28 14:17 have improved daphne daphne 14:28 14:17 Standard daphne daphne 14:28 14:17 daphne daphne 14:28 14:17 Food in esophagus daphne daphne 14:28 14:17 Vomiting - secondary to food bolus in the esophagus daphne daphne 14:51 14:29 DAY SURGERY OTHER daphne ty 14:51 14:29 daphne ty 15:12 14:51 Telemetry/MedSurg (observation) ty hb 15:12 14:51 213 ty hb
--- NOTE | 2024-12-13 14:18 | ER ---
Nurse's Notes [facility] Name: Pato Gardiner Age: 39 yrs Sex: Male : 1985 Arrival Date: 12/13/2024 Time: 11:59 Bed 5 Private MD: Diagnosis: Food in esophagus;Vomiting Presentation: 12/13 12:21 Chief complaint: Patient states: I have a throat condition and food gets stuck in my iw throat, this morning I got something stuck in my throat, tried to get it down but now i can't drink water. Coronavirus screen: At this time, the client does not indicate any symptoms associated with coronavirus-19. Ebola Screen: No symptoms or risks identified at this time. Initial Sepsis Screen: Does the patient meet any 2 criteria? No. Patient's initial sepsis screen is negative. Does the patient have a suspected source of infection? No. Patient's initial sepsis screen is negative. Risk Assessment: Do you want to hurt yourself or someone else? Patient reports no desire to harm self or others. Onset of symptoms was December 13, 2024. 12:21 Method Of Arrival: Ambulatory iw 12:21 Acuity: ANDREW 3 iw Historical: - Allergies: 12:23 No Known Allergies; iw - Home Meds: 12:23 Propranolol Oral [Active]; iw - PMHx: 12:23 Anxiety; Hypertension; iw - PSHx: 12:23 Appendectomy; iw - Immunization history:: Adult Immunizations not up to date. - Infectious Disease History:: Denies. - Social history:: Smoking status: Reported history of juuling and/or vaping. Patient/guardian denies using tobacco, Stopped _ months ago 1 Patient uses alcohol, quit recently . Screenin:00 [facility] ED Fall Risk Assessment (Adult) History of falling in the last 3 months, db including since admission No falls in past 3 months (0 pts) Confusion or Disorientation No (0 pts) Intoxicated or Sedated No (0 pts) Impaired Gait No (0 pts) Mobility Assist Device Used No (0 pt) Altered Elimination No (0 pt) Score/Fall Risk Level 0 - 2 = Low Risk Oriented to surroundings, Maintained a safe environment. Abuse screen: Denies threats or abuse. Denies injuries from another. Nutritional screening: No deficits noted. Tuberculosis screening: No symptoms or risk factors identified. Assessment: 12:45 Reassessment: Patient appears in no apparent distress at this time. Patient and/or db family updated on plan of care and expected duration. Pain level reassessed. Patient is alert, oriented x 3, equal unlabored respirations, skin warm/dry/pink. General: Appears in no apparent distress. comfortable, Behavior is calm, cooperative. Pain:. Neuro: Level of Consciousness is awake, alert, obeys commands, Oriented to person, place, time, situation. 13:00 Reassessment: Patient appears in no apparent distress at this time. Patient and/or db family updated on plan of care and expected duration. Pain level reassessed. Patient is alert, oriented x 3, equal unlabored respirations, skin warm/dry/pink. 14:00 Reassessment: Patient appears in no apparent distress at this time. Patient and/or db family updated on plan of care and expected duration. Pain level reassessed. Patient is alert, oriented x 3, equal unlabored respirations, skin warm/dry/pink. 14:29 Reassessment: PT STATES TOLERATED PO BUT STATES FLUID FEELS LIKE IT IS STOPPED UP, db BUBBLES UP THEN SLOWLY GOES DOWN. NOTIFIED DR. BRYANT. 15:19 Reassessment: Patient appears in no apparent distress at this time. Patient and/or db family updated on plan of care and expected duration. Pain level reassessed. Patient is alert, oriented x 3, equal unlabored respirations, skin warm/dry/pink. PREOP NURSE AT PATIENT BEDSIDE TO TAKE PT TO OR. Vital Signs: 12:21 BP 143 / 83; Pulse 99; Resp 18; Temp 97.4; Pulse Ox 98% on R/A; Weight 97.52 kg; Height iw 5 ft. 11 in. ; Pain 0/10; 13:30 BP 119 / 79; Pulse 80; Resp 16; Pulse Ox 99% on R/A; db 14:33 BP 134 / 87; Pulse 73; Resp 15; Pulse Ox 98% ; jl7 12:21 Body Mass Index 29.99 (97.52 kg, 180.34 cm) iw 12:21 Pain Scale: Adult iw ED Course: 12:02 Patient arrived in ED. mr 12:07 Boubacar Bryant MD is Attending Physician. daphne 12:22 Triage completed. iw 12:24 Arm band placed on. iw 12:35 Michelle Wall, RN is Primary Nurse. db 12:42 EKG done, by ED staff, reviewed by Boubacar Bryant MD. em1 12:45 Initial lab(s) drawn, by me, sent to lab. Inserted saline lock: 20 gauge in right db antecubital area, using aseptic technique. Blood collected. Flushed with 10 mL NS. 12:55 Neck Soft Tissue XRAY In Process Unspecified. EDMS 12:55 Chest Pa And Lat (2 Views) XRAY In Process Unspecified. EDMS 14:16 Willis De La Cruz is Hospitalizing Provider. daphne 14:28 Zeke Garcia MD is Hospitalizing Provider. daphne 14:42 Patient has correct armband on for positive identification. Bed in low position. Call db light in reach. Side rails up X 1. Pulse ox on. NIBP on. Warm blanket given. Pillow given. 15:19 Provided Education on: PT TO PREOP. db 15:19 No provider procedures requiring assistance completed. Patient admitted, IV remains in db place. Administered Medications: 12:45 Drug: NS 0.9% IV 500 ml 500 ml IV at 1 bolus once; to be given as a bolus over 30 db minutes Volume: 500 ml; Route: IV; Rate: 1 bolus; Site: right antecubital; 14:12 Follow up: Response: No adverse reaction; IV Status: Completed infusion; IV Intake: db 500ml 12:45 Drug: Ondansetron IVP 4 mg IVP once; over 2 minutes Route: IVP; Site: right antecubital;db 14:12 Follow up: Response: No adverse reaction db 12:45 Drug: Famotidine IVP 20 mg IVP once; dilute with 10 mL 0.9% NaCl; give over 2 minutes db Route: IVP; Site: right antecubital; 14:12 Follow up: Response: No adverse reaction db 12:45 Drug: Glucagon IVP 1 mg IVP once Route: IVP; Site: right antecubital; db 14:11 Follow up: Response: No adverse reaction db 14:05 Drug: Glucagon IVP 1 mg IVP once Route: IVP; Site: right antecubital; db 14:29 Follow up: Response: No adverse reaction db Medication: 15:19 VIS not applicable for this client. db Intake: 14:12 IV: 500ml; Total: 500ml. db Outcome: 14:17 Decision to Hospitalize by Provider. daphne 14:29 Decision to Hospitalize by Provider. daphne 15:19 Admitted to OR accompanied by nurse, db 15:19 Admitted to OR with chart, 15:19 Condition: stable 15:19 Instructed on the need for admit, 15:21 Patient left the ED. ty Signatures: Dispatcher [employer] EDMS Boubacar Bryant MD MD cha Rivera, Ruby, Reg Reg mr Estefany Adair, RN RN iw Robby Rodriguez em1 Aashish Foster RN RN jl7 Michelle Wall RN RN db Jose Jolly ty Corrections: (The following items were deleted from the chart) 12:23 12:21 BP 143 / 83; Pulse 99bpm; Resp 18bpm; Pulse Ox 98% RA; Temp 97.4F; iw nguyen
[2024-12-13] MEDS ORDERED: NA CHLORIDE 0.9% 1,000 ML IV SCH (15:05)
[2024-12-13] MEDS ORDERED: ONDANSETRON 4 MG/2 ML VIAL IV PRN (15:05)
[2024-12-13] MEDS ORDERED: LIDOCAINE 1% MPF 5 ML VIAL ONE (15:10)
[2024-12-13] MEDS ORDERED: propofoL 200 MG/20 ML VIAL IV ONE (15:10)
[2024-12-13] MEDS ORDERED: SUCCINYLCHOLINE 20 MG/ML (10 ML) IV ONE (15:16)
--- NOTE | 2024-12-13 15:18 | P.HP ---
Certification for Inpatient Patient admitted to: Observation With expected LOS: <2 Midnights Patient will require the following post-hospital care: None Practitioner: I am a practitioner with admitting privileges, knowledge of patient current condition, hospital course, and medical plan of care. Services: Services provided to patient in accordance with Admission requirements found in Title 42 Section 412.3 of the Code of Federal Regulations Patient History Date of Service: 12/13/24 Reason for admission: Food bolus stuck in the esophagus; esophageal stricture History of Present Illness: Patient is a 39-year-old gentleman has had a history of esophageal dysmotility since he was a young kid. He is required numerous esophageal dilatations; however, he has not really followed up as an outpatient which she states is secondary to the expense of having follow-up appointments. He works at [employer] and he has insurance but he has not really researched what doctors to follow-up with. He has had numerous EGDs with esophageal dilatations in the past. Currently, patient is still feeling like there is something occluded. He was given glucagon x 2 in the emergency room. He has been drinking carbonated beverages without any success. At this time, patient will be admitted to the hospital for GI consultation for EGD with removal of his food bolus. Will also need to have esophageal dilatation. Patient will need definitive treatment as an outpatient. At this time patient will be admitted for observation. Allergies No Known Allergies Allergy (Unverified 12/13/24 15:04) - Past Medical/Surgical History -: Esophageal dysmotility -: EGD with esophageal dilatation - Family History Father Family History: Reviewed- Non-Contributory - Social History Smoking Status: Former smoker Alcohol use: No CD- Drugs: No Review of Systems 10-point ROS is otherwise unremarkable Physical Examination - Vital Signs Temperature: 98 F Blood Pressure: 120/80 Pulse: 80 Respirations: 18 Pulse Ox (%): 95 - Physical Exam General: Alert, In no apparent distress, Oriented x3 HEENT: Atraumatic, PERRLA, Mucous membr. moist/pink, EOMI, Sclerae nonicteric Neck: Supple, 2+ carotid pulse no bruit, No LAD, Without JVD or thyroid abnormality Respiratory: Clear to auscultation bilaterally, Normal air movement Cardiovascular: Regular rate/rhythm, Normal S1 S2, No murmurs Gastrointestinal: Normal bowel sounds, Soft and benign, Non-distended, No tenderness Musculoskeletal: No swelling, No tenderness Integumentary: No rashes Neurological: Normal gait, Normal speech, Normal strength at 5/5 x4 extr, Normal tone, Sensation intact, Cranial nerves 3-12 intact, Normal affect Lymphatics: No axilla or inguinal lymphadenopathy - Studies Laboratory Data (last 24 hrs) 12/13/24 12/13/24 12:43 12:43 WBC 9.90 Hgb 16.2 Hct 47.5 Plt Count 231 Sodium 141 Potassium 3.8 BUN 9 Creatinine 0.78 Glucose 104 Total Bilirubin 0.8 AST 22 ALT 29 Alkaline Phosphatase 65 Assessment & Plan - Problems (Diagnosis) (1) Esophageal foreign body Current Visit: Yes Status: Acute (2) Esophageal dysmotility Current Visit: Yes Status: Acute - Plan Plan: 1. Patient with esophageal obstruction; patient will need EGD with removal of food bolus. Glucagon x 2 was attempted. But they were unsuccessful. Will go ahead and get GI consultation for EGD with esophageal dilatation. At this time patient will be admitted to the hospital for further evaluation. Continue with PPI twice a day. Continue with pain control as needed. Patient be admitted for observation. Discharge Plan: Home Plan to discharge in: 24 Hours - Advance Directives Does patient have a Living Will: No Does patient have a Durable POA for Healthcare: No - Code Status/Comfort Care Code Status Assessed: Yes Code Status: Full Code Critical Care: No Time Spent Managing PTS Care (In Minutes): 45
[2024-12-13] MEDS ORDERED: SODIUM CHLORIDE 0.9% 10ML INJ IV PRN (15:19)
[2024-12-13] MEDS ORDERED: MORPHINE 2 MG/ML SYR IV PRN (15:19)
[2024-12-13] MEDS ORDERED: ACETAMINOPHEN 500 MG TAB PO PRN (15:19)
[2024-12-13] MEDS ORDERED: FENTANYL CITR 100 MCG/2 ML ONE (15:38)
[2024-12-13] MEDS ORDERED: MIDAZOLAM HCL 2 MG/2 ML INJ ONE (15:38)
[2024-12-13] MEDS: Ringers Lactate 1,000 ML IV ONE (15:38)
[2024-12-13] MEDS ORDERED: ROCURONIUM 50 MG/5 ML VIAL IV ONE (15:38)
[2024-12-13 16:31] VITALS: TEMP 97
--- NOTE | 2024-12-13 17:02 | P.DS ---
Discharge Date: 12/13/24 Disposition: ROUTINE DISCHARGE Discharge Condition: GOOD Reason for Admission: Food bolus stuck in the esophagus; esophageal stricture - Problems (1) Esophageal foreign body Current Visit: Yes Status: Acute (2) Esophageal dysmotility Current Visit: Yes Status: Acute Brief History of Present Illness: Patient is a 39-year-old gentleman has had a history of esophageal dysmotility since he was a young kid. He is required numerous esophageal dilatations; however, he has not really followed up as an outpatient which she states is secondary to the expense of having follow-up appointments. He works at [employer] and he has insurance but he has not really researched what doctors to follow-up with. He has had numerous EGDs with esophageal dilatations in the past. Currently, patient is still feeling like there is something occluded. He was given glucagon x 2 in the emergency room. He has been drinking carbonated beverages without any success. At this time, patient will be admitted to the hospital for GI consultation for EGD with removal of his food bolus. Will also need to have esophageal dilatation. Patient will need definitive treatment as an outpatient. At this time patient will be admitted for observation. Hospital Course: Patient has done well during hospital stay. Patient's clinical symptoms have improved. Patient status post EGD. Patient will continue with medical therapy as an outpatient. Patient will follow-up with GI as an outpatient in 1 to 2 weeks and patient will need to have close monitoring for esophageal dilatation every 12 to 24 weeks. Vital Signs/Physical Exam: Temp Pulse Resp BP Pulse Ox 97.0 F 82 16 112/63 95 12/13/24 16:26 12/13/24 16:46 12/13/24 16:46 12/13/24 16:46 12/13/24 15:18 Laboratory Data at Discharge: WBC 9.90 thou/uL (4.3-10.9) 12/13/24 12:43 Hgb 16.2 g/dL (13.6-17.9) 12/13/24 12:43 Hct 47.5 % (39.6-49.0) 12/13/24 12:43 Plt Count 231 thou/uL (152-406) 12/13/24 12:43 Sodium 141 mEq/L (136-145) 12/13/24 12:43 Potassium 3.8 mEq/L (3.5-5.1) 12/13/24 12:43 BUN 9 mg/dL (7-18) 12/13/24 12:43 Creatinine 0.78 mg/dL (0.70-1.30) 12/13/24 12:43 Glucose 104 mg/dL (74-106) 12/13/24 12:43 Total Bilirubin 0.8 mg/dL (0.2-1.0) 12/13/24 12:43 AST 22 U/L (15-37) 12/13/24 12:43 ALT 29 U/L (16-61) 12/13/24 12:43 Alkaline Phosphatase 65 U/L (45-117) 12/13/24 12:43 Physician Discharge Instructions: -DC IV and DC home -Follow-up with PCP in 1 to 2 weeks -Follow-up with gastroenterology in 1 to 2 weeks -Please call Dr. Blake at [phone] if any questions regarding hospital stay -Please call nursing station at [phone] if any nursing or medication questions -Return to the emergency room if symptoms worsen Diet: soft Activity: Ad babak Followup: NONE,NONE [Primary Care Provider] -
--- NOTE | 2024-12-13 17:37 | CON ---
Date of Consultation: 12/13/2024 Reason For Consultation: Dysphagia to solids and liquids after eating [employer] mini burger with food bolus. History Of Present Illness: This is a 39-year-old [place] male who has history of gastric reflux disease, heartburn, esophageal strictures since a young child. The patient presented to the hospital stating that he was eating [employer] mini burger this morning approximately 10 a.m. when it became stuck and he was unable to swallow any more solids or liquids. Since the time he has had come to the emergency room he has received IV glucagon at least x2 and some carbonated Cola soda and it seems as though it is still stuck. He feels something at the suprasternal notch. He feels a pressure and pain and with difficulty swallowing solids and liquids there. He is able to keep his saliva down at this time. However, he is unsure if anything has really passed or not. He still feels a pressure whenever he swallows something in his chest. Of note, he has had multiple EGDs that he says dilatations x5 in the past in [place] and [place]. So he thinks he has had 5 esophageal dilatations with EGDs in the past. Past Medical History: Significant for acid reflux, heartburn, esophageal stricture status post EGDs with dilatations x5 and 4 in [place], possible esophageal motility disorder since he was a child. He said he has had problems swallowing since a child as well. Medications: None. Allergies: NKDA. Social History: Single. One son works at [email or web address] here locally. Originally from [place], has lived in [place] and [place] since that time. He denies tobacco and alcohol, he said he quit both of these 1 month ago for unclear reasons, he said he was just tired of all of it and quit. Family History: Father is alive with diabetes. Mother is alive with severe allergy disorder. Review of Systems: The patient has dysphagia to solids, liquids. He is able to swallow saliva, however, after esophageal meat bolus impaction after eating [employer] hamburger. He has a history of reflux and heartburn. None currently. He denies any hematemesis, coffee-grounds emesis, hematuria, dysuria, polydipsia, melena, hematochezia, chest pain, shortness of breath, seizure, syncope, muscle aches, joint aches, backaches, depression, anxiety or other. Physical Examination: Vital Signs: He is 5 feet 11 inches, 214 pounds. Temperature of 98 degrees Fahrenheit, pulse 80, respirations 18, blood pressure 120/80, O2 saturation 95%. General: He is well-nourished, well-developed male, lying in bed, in no acute distress. HEENT: Normocephalic, atraumatic. Anicteric. Pupils equal, round, and reactive to light. Anicteric. Nares clear. Neck: Supple. No masses. Respirations: Clear to auscultation bilaterally. Cardiac: Regular rate and rhythm. No gallop. Abdomen: Soft. Positive bowel sounds. Soft, nontender, nondistended. No hepatosplenomegaly. Extremities: No clubbing, cyanosis, or edema. 2+ pulses. Neuro: Alert and oriented x3. Grossly nonfocal. 5/5 motor. Sensation intact to light touch. Data: The patient's white count 9.9, hemoglobin 16.3, hematocrit 48, MCV of 90, platelet count 331, polys of 67%, lymphocytes 22%, monocytes 3%, eosinophils 3%. Sodium 141, potassium 3.8, chloride 108, bicarb 27, BUN 9, creatinine of 0.8, glucose 104. Calcium 9.1, total bilirubin 0.8, AST 22, ALT 29, alkaline phosphatase 65, total protein 7.7, albumin 3.8. Impression: 1. Dysphagia to solids and liquids at substernal notch since 10 a.m. this morning when he ate a [employer] mini burger. Probable meat bolus impaction in the esophagus. Will need to proceed with urgent EGD evaluation. 2. History of gastroesophageal reflux disease, esophageal stricture with multiple EGDs with dilatation x5 in [place] and in [place]. Recommendation: 1. Keep the patient n.p.o. 2. IV fluids. 3. Urgent EGD. WS/MODL Voice ID: [id number] Report ID: [id number] [facility]
[2024-12-13 18:13] VITALS: O2SAT 98
[2024-12-13 18:14] VITALS: BP 117/56
[2024-12-13] MEDS ORDERED: PANTOPRAZOLE 40 MG INJ IVP SCH (21:00)
--- NOTE | 2024-12-16 11:11 | EKG ---
Test Date: 2024-12-13 Test Time: 12:40:50 Ends Breakage Clerk: MELITA MEASUREMENT RESULTS: Intervals: Rate: 78 DE: 162 QRSD: 88 QT: 352 QTc: 401 [place]: P: 64 DE: 162 QRS: -12 T: 59 INTERPRETIVE STATEMENTS: Normal sinus rhythm Normal ECG Compared to ECG 02/28/2021 22:09:31 No significant changes Electronically Signed On 12-16-24 11:02:52 CDT by Kali Perry
== END 2024-12-13 18:30 | disposition home or self-care (01) ==
LOC: ER 11:59 → DS 14:30
PROVIDERS: ATTEND Internal Medicine Gastroenterology
PROC: 0DC38ZZ Extirpation of Matter from Lower Esophagus, Via Natural or Artificial Opening Endoscopic (ICD-10-PCS; principal; 2024-12-13 15:30)
DX: T18.128A Food in esophagus causing other injury, initial encounter (principal); R13.10 Dysphagia, unspecified; K21.9 Gastro-esophageal reflux disease without esophagitis; K22.4 Dyskinesia of esophagus; F17.290 Nicotine dependence, other tobacco product, uncomplicated; I10 Essential (primary) hypertension; F41.9 Anxiety disorder, unspecified; R11.10 Vomiting, unspecified
CPT/HCPCS: 43247; 96361; 93005; 85025; 36415; 80053; 71046; 70360; 96375; 96374; 99285; J1610 ×2; J2704; J2003; J2250; J3010; J2405 ×2; J7120; J7040